=== PATIENT | female | born 1930 | race Caucasian/White ===

== ENCOUNTER 2017-06-10 15:42 | Inpatient (IN) ==
[2017-06-10] MEDS ORDERED: *HR* HYDROcodone/Acet 5/325 mg TABLET PO PRN (18:06)
[2017-06-10] MEDS ORDERED: Acetaminophen 325 MG TABLET PO PRN (18:06)
[2017-06-10] MEDS ORDERED: Naloxone 0.4 MG/ML INJ IVP PRN ×2 (18:06→19:59)
[2017-06-10] MEDS ORDERED: *HR* Heparin 5,000 UNIT/ML VIAL IVP PRN ×2 (18:07→20:42)
[2017-06-10] MEDS ORDERED: *HR* Heparin 5,000 UNIT/ML VIAL IVP ONE (20:42)
--- NOTE | 2017-06-10 20:52 | Internal Med History&Physical ---
<AlinDonnie Aurora - Last Filed: 06/10/17 21:10> Date of Encounter: 06/10/17 Time of Encounter: 20:46 Assessment and Plan (1) CHF (congestive heart failure) Current visit: No Status: Acute Laxis, oxygen supplement Qualifiers: Heart failure type: unspecified Heart failure chronicity: acute Qualified Code(s): I50.9 - Heart failure, unspecified (2) NSTEMI (non-ST elevated myocardial infarction) Current visit: No Status: Acute Heparin drip. cardiology consult, BNP, trend troponin Internal Medicine - H&P: HPI Chief complaint: Shortness of Breath Admitted From: Hospital to Hospital Transfer Plans for Post Hospital Care: Home History of present illness: Ms. Serra is a 86 year old female with Medical history that include hypertension, diabetes, CAD and CHF. last echo result showed an EF of 35%. She came is as a transfer with complain of shortness of breath and elevated troponin. Past Med Surg Social Fam HX - Past Medical History Medical history: diabetes, hypertension, other Psychiatric history: no psych history - Social History Smoking Status: Never smoker Smokeless Tobacco Status: No Alcohol use: none Drug use: none Internal Medicine - H&P: Meds Atenolol [Tenormin] 50 mg PO DAILY 05/12/15 [History] Ergocalciferol (VITAMIN D2) [Vitamin D2] 50,000 unit PO QWEEK 05/12/15 [History] Lisinopril [Zestril] 20 mg PO DAILY 05/12/15 [History] cloNIDine HCl [CloNIDine HCl] 0.1 mg PO BID 05/12/15 [History] metFORMIN [Glucophage] 500 mg PO BIDWM 05/12/15 [History] Furosemide [Lasix] 10 mg PO DAILY 06/10/17 [History] Potassium Bicarbonate/Cit AC [Potassium 25 Meq Tablet Eff] 1 PO DAILY 06/10/17 [ History] 3 Allergy/AdvReac Type Severity Reaction Status Date / Time No Known Allergies Allergy Verified 05/12/15 13:48 All Systems PM: A 10-system review of systems was performed and is negative for pertinent findings except as documented above in the HPI. - Constitutional Constitutional: as per HPI - Cardiovascular Cardiovascular ROS IM: dyspnea - Respiratory Respiratory: cough, dyspnea - Gastrointestinal Gastrointestinal: as per HPI - Constitutional Vitals: Temp Pulse Resp BP Pulse Ox 97.6 F 71 18 150/97 92 06/10/17 20:18 06/10/17 20:18 06/10/17 20:18 06/10/17 20:18 06/10/17 20:18 General appearance: Present: A&O X 3, pleasant - Eye Eye exam: Present: PERRL - ENT ENT exam: Present: TM's normal bilaterally - Neck Neck exam general surgery: Present: supple, trachea midline - Respiratory Respiratory exam: Present: CTAB - GI/Abdominal GI/Abdominal exam: Present: normal bowel sounds, no peritoneal signs - Extremities Exam Extremities exam: Present: pedal edema, warm - Neurological Exam Neurological exam: Present: alert, oriented X3 - Psychiatric Psychiatric exam: Present: normal affect, normal mood - Skin Skin exam: Present: dry, warm Internal Med - H&P Results - Labs Labs: Cardiac Enzymes 06/10/17 Range/Units 18:23 Troponin I 3.05 H* (< 0.04) ng/mL <Sita Agarwal - Last Filed: 06/10/17 23:06> Date of Encounter: 06/10/17 Internal Medicine - H&P: HPI History of present illness: Ms. Serra is a 86 year old female All Systems PM: A 10-system review of systems was performed and is negative for pertinent findings except as documented above in the HPI. - Constitutional Vitals: Temp Pulse Resp BP Pulse Ox 97.6 F 71 18 150/97 92 06/10/17 20:18 06/10/17 20:18 06/10/17 20:18 06/10/17 20:18 06/10/17 20:18 Internal Med - H&P Results - Labs Labs: Cardiac Enzymes 06/10/17 06/10/17 Range/Units 18:23 20:49 Troponin I 3.05 H* 2.82 H* (< 0.04) ng/mL - Attending Attestation I examined this patient and my medical decision-making was reviewed with the Resident Physician. I agree with the documented findings, disposition and treatment plan as described except to the extent set forth below.
[2017-06-10] MEDS ORDERED: cloNIDine HCl 0.1 MG TABLET PO SCH (21:00)
[2017-06-10] MEDS ORDERED: Nitroglycerin 25 MG/250 ML INFUS..BTL IVC SCH (21:15)
[2017-06-10] MEDS: Furosemide 40 MG/4 ML VIAL IVP SCH (22:13)
[2017-06-11] MEDS: Heparin 25,000 UNIT/500 ML D5W 25,000 UNIT/500 ML BAG IVC SCH ×2 (00:29→22:06)
[2017-06-11] MEDS: *HR* Heparin 5,000 UNIT/ML VIAL IVP PRN (00:34)
[2017-06-11] MEDS ORDERED: *HR* Metoprolol 5 MG/5 ML VIAL IVP ONE (01:32)
[2017-06-11 03:58] LABS: Hematocrit 40.6 % (35.3-44.9); Hemoglobin 13.9 g/dL (11.5-15.4); Mean Corpuscular HGB Conc 34.2 g/dL (31.6-35.5); Mean Corpuscular Hemoglobin 30.2 pg (28.0-33.3); Mean Corpuscular Volume 88.1 fL (83.0-100.0); Mean Platelet Volume 10.8 fL (9.4-12.4); Platelet Count 383 K/mcL (140-400); Red Blood Count 4.61 M/mcL (3.82-4.97); Red Cell Distribution Width 12.7 % (11.5-14.5)
[2017-06-11] MEDS ORDERED: Furosemide 40 MG/4 ML VIAL IVP ONE (04:16)
[2017-06-11 04:22] LABS: Chol/HDL Ratio 3.5 (0-4.9)
[2017-06-11 04:23] LABS: Calcium 10.2 mg/dL (8.6-10.3); Potassium 4.8 mEq/L (3.5-5.1)
--- NOTE | 2017-06-11 04:24 | Event Note ---
Date of Encounter: 06/11/17 Time of Encounter: 04:25 called to see patient still sob. patient still in respiratory distress not much urine output decresaed breathe sound bilat with prolonged exp phase will give lasix 80 mg now, place on bipap and obtain abg no history of copd stat bnp
[2017-06-11 04:26] LABS: ABG Base Excess 1 mEq/L (-2 to 3); ABG HCO3 25 mEq/L (21-27); ABG Oxygen Saturation 99 % (95-98); ABG PCO2 39 mmHg (35-45); ABG PH 7.42 pH Units (7.32-7.45); ABG PO2 113 mmHg (85-104); ABG TCO2 27 mEq/L (20-26)
[2017-06-11] MEDS ORDERED: *HR* Metformin 500 MG TABLET PO SCH (08:00)
[2017-06-11] MEDS: Furosemide 40 MG/4 ML VIAL IVP SCH ×2 (08:53→16:06)
[2017-06-11] MEDS: Lisinopril 20 MG TABLET PO SCH (08:53)
[2017-06-11] MEDS ORDERED: Furosemide 20 MG TABLET PO SCH (09:00)
[2017-06-11] MEDS ORDERED: Dextrose Gel 15 GM PO PRN ×2 (09:24)
[2017-06-11] MEDS ORDERED: D5% in Water 1,000 ML IVC PRN (09:24)
[2017-06-11] MEDS ORDERED: *HR* Dextrose 50 % in Water (Syg) 50 ML SYRINGE IVP PRN (09:24)
--- NOTE | 2017-06-11 10:01 | Internal Med Progress Note ---
Date of Encounter: 06/11/17 Time of Encounter: 09:35 - Subjective Interval history: Interval changes: 06/11/2017: Very confused this morning SOB with even minimal exertion She required BiPAP overnight NSTEMI: Trp- 2.82-->3.05-->2.56 ECG SR with freq. PVC Continue aspirin, BB, Heparin drip Cardiology consulted last night Keep NPO Stop Metformin Chronic systolic HF with exacerbation: CXR shows pulm vasc hema. BNP 2291 Given 80 mg of Lasix overnight Last Echo 06/02/2017: LVEF 35% with mild diastolic dysfunction Continue Lasix Monitor fluid balance On ANNELISE/ARB Upcoming initial OP visit with Dr. Jasso DM-2: Hold Metformin While NPO AccuChecks q6 hrs SSI Q6 hrs. Check A1c Dementia: - Constitutional Vitals: Temp Pulse Resp BP Pulse Ox 97.4 F L 101 18 162/78 97 06/11/17 00:27 06/11/17 07:22 06/11/17 07:22 06/11/17 07:22 06/11/17 07:22 General appearance: Present: mild distress, A&O X 3, pleasant, obese, answers questions appropriately - Head Head exam: Present: atraumatic, normocephalic - Eye Eye exam: Present: PERRL, conjuntiva pink, sclera anicteric Pupils: Present: PERRL - Neck Neck exam general surgery: Present: supple, trachea midline. Absent: lymphadenopathy - Respiratory Respiratory exam: Present: CTAB. Absent: accessory muscle use, rales, rhonchi, wheezes - Cardiovascular Cardiovascular exam: Present: RRR, +S1, +S2. Absent: diastolic murmur, gallop, rubs, systolic murmur - GI/Abdominal GI/Abdominal exam: Present: distended, normal bowel sounds, soft, no peritoneal signs. Absent: firm, guarding, tenderness - Extremities Exam Extremities exam: Present: pedal edema, warm. Absent: calf tenderness, cyanotic - Neurological Exam Neurological exam: Present: CN II-XII intact, oriented X3, no focal deficits. Absent: pronater drift, facial droop, speech deficit - Skin Skin exam: Present: dry, intact, warm Internal Medicine: Result - Labs CBC & Chem 7: 06/11/17 02:40 06/11/17 02:40 Labs: Short CBC 06/11/17 Range/Units 02:40 WBC 11.0 D (4.3-11.1) K/mcL Hgb 13.9 (11.5-15.4) g/dL Hct 40.6 (35.3-44.9) % Plt Count 383 (140-400) K/mcL BMP 06/11/17 02:40 Sodium 127 L Potassium 4.8 Chloride 90 L Carbon Dioxide 27 BUN 40 H Creatinine 1.32 H Glucose 253 H Calcium 10.2 Cardiac Enzymes 06/10/17 06/10/17 06/11/17 Range/Units 18:23 20:49 02:40 Troponin I 3.05 H* 2.82 H* 2.56 H* (< 0.04) ng/mL 06/11/17 Range/Units 08:27 Troponin I 2.08 H* (< 0.04) ng/mL - ABG Interpretation ABG results: ABG ABG pH 7.42 pH Units (7.32-7.45) 06/11/17 04:22 ABG pCO2 39 mmHg (35-45) 06/11/17 04:22 ABG pO2 113 mmHg (85-104) H 06/11/17 04:22 ABG O2 Saturation 99 % (95-98) H 06/11/17 04:22 Consult Discharge Plan - Plan Referrals: Mj Bernabe MD [Primary Care Provider] -
--- NOTE | 2017-06-11 10:44 | Cardiology Consult Note ---
Date of Encounter: 06/11/17 Time of Encounter: 10:45 Assessment and Plan (1) NSTEMI (non-ST elevated myocardial infarction) Current Visit: Yes Status: Acute ?Ischemic has frquent PVC but no ongoing chest discomfort. Could be demand ischemia from acute systolic CHF/CKD vs. JULIA Continue diuresis and heparin drip. (2) Acute systolic CHF (congestive heart failure) Current Visit: Yes Status: Acute Continue diuresis, increase NTG to address BP And improve preload reduction. Will plan on [facility] possibly tomorrow or Tuesday depending on clinical course. PAtient noted to have frequent PVC on tele but no ongoing chest discomfort and dyspnea improving. (3) HTN (hypertension) Current Visit: Yes Status: Acute uncontrolled, increase NTG Drip Qualifiers: Hypertension type: essential hypertension Qualified Code(s): I10 - Essential (primary) hypertension Discussion w patient/family: The assessment and plan as outlined above was discussed with the patient and/or family members who expressed understanding and agreement. All questions were answered. Thank you for involving us in the care of your patient. Please call with any questions. History of Present Illness History of present illness: Ms. Serra is a 86 year old female who lives in [facility] with Dr. Bernabe with no previous cardiac history and "healthy as a horse" until recently. She had an outpatient echo showing EF 35% (Global HK) and outpt cardiology fu. Yesterday had worsening of dyspnea on exertion and found in ED to have pulmonary edema/acute systolic CHF without chest/jaw/arm discomfort, started on NTG drip and lasix with improvement now on NC instead of BIPAP. She has chronic LE Edema. She denies syncope or palpitations. Past Med Surg Social Fam HX - Past Medical History Medical history: diabetes, hypertension, other Psychiatric history: no psych history - Social History Smoking Status: Never smoker Smokeless Tobacco Status: No Alcohol use: none Drug use: none Medications and Allergies Ergocalciferol (VITAMIN D2) [Vitamin D2] 50,000 unit PO QWEEK 05/12/15 [History] Lisinopril [Zestril] 20 mg PO DAILY 05/12/15 [History] cloNIDine HCl [CloNIDine HCl] 0.3 mg PO BID 05/12/15 [History] metFORMIN [Glucophage] 500 mg PO BIDWM 05/12/15 [History] Furosemide [Lasix] 40 mg PO BID 06/11/17 [History] Metoprolol Succinate [Toprol Xl] 50 mg PO BID 06/11/17 [History] Potassium Chloride [Klor-Con 10] 10 meq PO BID 06/11/17 [History] 3 Allergy/AdvReac Type Severity Reaction Status Date / Time No Known Allergies Allergy Verified 05/12/15 13:48 All Systems Review: The remainder of the systems were reviewed and are negative - Constitutional Constitutional: no chills, no fever(s) - EENT Eyes: no blurred vision, no loss of vision Nose, mouth and throat: no bleeding gums, no epistaxis - Cardiovascular Cardiovascular: dyspnea at rest, dyspnea on exertion - Respiratory Respiratory: no hemoptysis, no wheezing - Gastrointestinal Gastrointestinal: no hematemesis, no hematochezia - Genitourinary Genitourinary: no hematuria, no nocturia - Musculoskeletal Musculoskeletal: no arthralgias, no myalgias - Integumentary Integumentary: no erythema, no unusual bruising - Neurological Neurological: no numbness, no tingling - Psychiatric Psychiatric: no hallucinations, no panic attacks - Hematological/Lymphatic Hematologic/Lymphatic: no easy bleeding, no easy bruising Physical Examination Vital Signs, Last 4 Hours Pulse Resp BP Pulse Ox 06/11/17 07:22 101 18 162/78 97 General: Conversant HEENT: Atraumatic Neck: No JVD Cardiac: Other (irr s1 s2) Lungs: Other (bl crackles) Neuro: Alert and responsive, No focal deficits noted Abdomen: Soft, Non-Tender Skin: No rashes noted on visualized skin Musculoskeletal: No Chest Wall Tenderness Extremities: Other (edema present) Results 06/11/17 02:40 06/11/17 02:40 Lab Results 06/10/17 06/10/17 06/10/17 18:23 18:23 20:49 WBC Hgb Hct Plt Count APTT 34.5 Sodium Potassium Chloride Carbon Dioxide BUN Creatinine Glucose Calcium Magnesium Troponin I 3.05 H* 2.82 H* B-Natriuretic Peptide 06/10/17 06/11/17 06/11/17 22:25 02:40 02:40 WBC 11.0 D Hgb 13.9 Hct 40.6 Plt Count 383 APTT 48.7 H Sodium Potassium Chloride Carbon Dioxide BUN Creatinine Glucose Calcium Magnesium Troponin I 2.56 H* B-Natriuretic Peptide 06/11/17 06/11/17 06/11/17 02:40 02:40 02:40 WBC Hgb Hct Plt Count APTT Sodium 127 L Potassium 4.8 Chloride 90 L Carbon Dioxide 27 BUN 40 H Creatinine 1.32 H Glucose 253 H Calcium 10.2 Magnesium 2.2 Troponin I B-Natriuretic Peptide 2291 H 06/11/17 06/11/17 06:18 08:27 WBC Hgb Hct Plt Count APTT 92.8 H D Sodium Potassium Chloride Carbon Dioxide BUN Creatinine Glucose Calcium Magnesium Troponin I 2.08 H* B-Natriuretic Peptide - Imaging and Cardiology Chest Xray: report reviewed Echo: report reviewed, image reviewed - EKG Interpretation EKG results cardiology: sinus rhythm (with pvcs) Consult Discharge Plan - Plan Referrals: Mj Bernabe MD [Primary Care Provider] -
[2017-06-11] MEDS ORDERED: Nitroglycerin 25 MG/250 ML INFUS..BTL IVC SCH (10:50)
[2017-06-11] MEDS: Insulin LISPRO 300 UNITS/3 ML VIAL SQ SCH ×3 (11:12→22:03)
[2017-06-12] MEDS: Heparin 25,000 UNIT/500 ML D5W 25,000 UNIT/500 ML BAG IVC SCH (03:36)
[2017-06-12] MEDS: Ondansetron 4 MG/2 ML VIAL IVP PRN (04:28)
[2017-06-12 04:29] LABS: Basophils % 0.2 %; Hematocrit 37.3 % (35.3-44.9); Hemoglobin 12.5 g/dL (11.5-15.4); Immature Granulocytes % 0.5 % (0-4); Lymphocytes % 8.4 %; Mean Corpuscular HGB Conc 33.5 g/dL (31.6-35.5); Mean Corpuscular Volume 86.5 fL (83.0-100.0); Mean Platelet Volume 10.7 fL (9.4-12.4); Monocytes # 0.7 K/mcL (0.0-1.3); Monocytes % 5.9 %; Neutrophils # 9.9 K/mcL (1.6-8.9); Platelet Count 347 K/mcL (140-400); Red Blood Count 4.31 M/mcL (3.82-4.97); Red Cell Distribution Width 12.3 % (11.5-14.5)
[2017-06-12] MEDS: Insulin LISPRO 300 UNITS/3 ML VIAL SQ SCH ×4 (05:57→16:49)
[2017-06-12 06:15] LABS: Calcium 9.8 mg/dL (8.6-10.3); Chol/HDL Ratio 3.2 (0-4.9); Potassium 4.2 mEq/L (3.5-5.1)
[2017-06-12] MEDS: *HR* Heparin 5,000 UNIT/ML VIAL IVP PRN (06:48)
[2017-06-12] MEDS: Furosemide 40 MG/4 ML VIAL IVP SCH (08:23)
[2017-06-12] MEDS: Lisinopril 20 MG TABLET PO SCH (08:23)
[2017-06-12] MEDS: Aspirin 325 MG TABLET PO SCH (08:23)
--- NOTE | 2017-06-12 08:54 | Cardiology Progress Note ---
Date of Encounter: 06/12/17 Time of Encounter: 09:00 Assessment and Plan (1) NSTEMI (non-ST elevated myocardial infarction) Current Visit: Yes Status: Acute PVC less frequent and NSVT shorter. Continue heparin drip, will add imdur for preload reduction. Dyspnea has improved with mild worsening of renal function. (2) Acute systolic CHF (congestive heart failure) Current Visit: Yes Status: Acute PVC improving, patient stable. Start Imdur. Continue monitoring I&O, BMP, daily weight. will decrease lasix 2/2 JULIA? on CKD (3) HTN (hypertension) Current Visit: Yes Status: Acute uncontrolled, increase NTG Drip Qualifiers: Hypertension type: essential hypertension Qualified Code(s): I10 - Essential (primary) hypertension (4) CKD (chronic kidney disease) Current Visit: Yes Status: Acute Patient seen by Dr. Gonzalez in nephrology recently for ?mild CKD. Unknown baseline. Qualifiers: Chronic kidney disease stage: unspecified stage Qualified Code(s): N18.9 - Chronic kidney disease, unspecified Discussion w patient/family: The assessment and plan as outlined above was discussed with the patient and/or family members who expressed understanding and agreement. All questions were answered. Thank you for involving us in the care of your patient. Please call with any questions. Subjective Principal diagnosis: chf exacerbation Interval history: Patient denies chest/jaw/arm discomfort. She notes intermittent palpitations. Dyspnea is mildly improved. Objective Vital Signs, Last 4 Hours Temp Pulse Resp BP Pulse Ox 06/12/17 08:00 98 F 78 18 133/88 96 06/12/17 05:48 77 18 135/88 96 General: Conversant HEENT: Atraumatic Neck: No JVD Cardiac: Other (irr s1 s2) Lungs: Other (bilateral crackles) Neuro: Alert and responsive Abdomen: Soft Skin: No rashes noted on visualized skin Musculoskeletal: No Chest Wall Tenderness Extremities: No Edema Results 06/12/17 03:14 06/12/17 03:14 Lab Results 06/11/17 06/11/17 06/11/17 08:27 12:25 19:40 WBC Hgb Hct Plt Count APTT 103.1 H 66.9 H Sodium Potassium Chloride Carbon Dioxide BUN Creatinine Glucose Calcium Troponin I 2.08 H* 03/25/18 03/25/18 03/25/18 03:14 03:14 03:14 WBC 11.6 H Hgb 12.5 Hct 37.3 Plt Count 347 APTT 46.6 H Sodium 126 L Potassium 4.2 Chloride 88 L Carbon Dioxide 26 BUN 42 H Creatinine 1.42 H Glucose 187 H Calcium 9.8 Troponin I - Imaging and Cardiology Echo: image reviewed - VTE Documentation of Mechanical Device: Intermittent pneumatic compression device Consult Discharge Plan - Plan Referrals: Mj Bernabe MD [Primary Care Provider] -
--- NOTE | 2017-06-12 22:14 | Internal Med Progress Note ---
Date of Encounter: 06/12/17 Time of Encounter: 18:20 - Subjective Interval history: Interval changes: 06/11/2017: Very confused this morning SOB with even minimal exertion She required BiPAP overnight 06/12/2017: lab scientist tomorrow Imdur added Lasix dose decreased due to worsenng renal failure Breathing comfortably NSTEMI: Trp- 2.82-->3.05-->2.56 ECG SR with freq. PVC Continue aspirin, BB, Heparin drip Keep NPO Metformin held lab scientist in am Chronic systolic HF with exacerbation: CXR shows pulm vasc hema. BNP 2291 Given 80 mg of Lasix overnight Last Echo 06/02/2017: LVEF 35% with mild diastolic dysfunction Continue Lasix Monitor fluid balance On ANNELISE/ARB Imdur added by cardiology DM-2: Hold Metformin While NPO AccuChecks q6 hrs SSI Q6 hrs. Check A1c Dementia: - Constitutional Vitals: Temp Pulse Resp BP Pulse Ox 98.0 F 79 16 125/88 97 06/12/17 19:52 06/12/17 19:52 06/12/17 19:52 06/12/17 19:52 06/12/17 19:52 General appearance: Present: mild distress, A&O X 3, pleasant, obese, answers questions appropriately - Head Head exam: Present: atraumatic, normocephalic - Eye Eye exam: Present: PERRL, conjuntiva pink, sclera anicteric Pupils: Present: PERRL - Neck Neck exam general surgery: Present: supple, trachea midline. Absent: lymphadenopathy - Respiratory Respiratory exam: Present: CTAB. Absent: accessory muscle use, rales, rhonchi, wheezes - Cardiovascular Cardiovascular exam: Present: RRR, +S1, +S2. Absent: diastolic murmur, gallop, rubs, systolic murmur - GI/Abdominal GI/Abdominal exam: Present: normal bowel sounds, soft, no peritoneal signs. Absent: distended, tenderness - Extremities Exam Extremities exam: Present: warm. Absent: calf tenderness, cyanotic, pedal edema - Neurological Exam Neurological exam: Present: CN II-XII intact, oriented X3, no focal deficits. Absent: pronater drift, facial droop, speech deficit - Skin Skin exam: Present: dry, intact Internal Medicine: Result - Labs CBC & Chem 7: 06/12/17 03:14 06/12/17 03:14 Labs: Short CBC 06/12/17 Range/Units 03:14 WBC 11.6 H (4.3-11.1) K/mcL Hgb 12.5 (11.5-15.4) g/dL Hct 37.3 (35.3-44.9) % Plt Count 347 (140-400) K/mcL Neutrophils # 9.9 H (1.6-8.9) K/mcL BMP 06/12/17 03:14 Sodium 126 L Potassium 4.2 Chloride 88 L Carbon Dioxide 26 BUN 42 H Creatinine 1.42 H Glucose 187 H Calcium 9.8 - ABG Interpretation ABG results: ABG ABG pH 7.42 pH Units (7.32-7.45) 06/11/17 04:22 ABG pCO2 39 mmHg (35-45) 06/11/17 04:22 ABG pO2 113 mmHg (85-104) H 06/11/17 04:22 ABG O2 Saturation 99 % (95-98) H 06/11/17 04:22 - VTE Documentation of Mechanical Device: Intermittent pneumatic compression device Consult Discharge Plan - Plan Referrals: Mj Bernabe MD [Primary Care Provider] -
[2017-06-13 03:44] LABS: Basophils # 0.1 K/mcL (0.0-0.2); Basophils % 0.4 %; Eosinophils # 0.1 K/mcL (0.0-0.6); Eosinophils % 0.5 %; Hematocrit 37.1 % (35.3-44.9); Hemoglobin 12.7 g/dL (11.5-15.4); Immature Granulocytes % 0.6 % (0-4); Lymphocytes # 1.3 K/mcL (0.6-4.6); Lymphocytes % 9.8 %; Mean Corpuscular HGB Conc 34.2 g/dL (31.6-35.5); Mean Corpuscular Hemoglobin 29.3 pg (28.0-33.3); Mean Corpuscular Volume 85.7 fL (83.0-100.0); Mean Platelet Volume 10.4 fL (9.4-12.4); Monocytes # 0.9 K/mcL (0.0-1.3); Platelet Count 321 K/mcL (140-400); Red Blood Count 4.33 M/mcL (3.82-4.97); Red Cell Distribution Width 12.6 % (11.5-14.5); Segmented Neutrophils % 81.7 %
[2017-06-13 03:59] LABS: Calcium 9.4 mg/dL (8.6-10.3); Potassium 4.4 mEq/L (3.5-5.1)
[2017-06-13] MEDS: Heparin 25,000 UNIT/500 ML D5W 25,000 UNIT/500 ML BAG IVC SCH (04:13)
[2017-06-13] MEDS: Insulin LISPRO 300 UNITS/3 ML VIAL SQ SCH ×4 (08:53→21:58)
[2017-06-13] MEDS: Isosorbide MONOnitrate (24 HR) 30 MG TAB.ER.24H PO SCH (08:54)
[2017-06-13] MEDS: Lisinopril 20 MG TABLET PO SCH (08:54)
[2017-06-13] MEDS: Aspirin 325 MG TABLET PO SCH (08:55)
[2017-06-13] MEDS ORDERED: Furosemide 40 MG/4 ML VIAL IVP SCH (09:00)
[2017-06-13 10:13] LABS: Estimated Average Glucose 154 mg/dl
--- NOTE | 2017-06-13 10:39 | Cardiology Progress Note ---
Date of Encounter: 06/13/17 Time of Encounter: 10:36 Assessment and Plan (1) NSTEMI (non-ST elevated myocardial infarction) Current Visit: Yes Status: Acute Troponins 3.05, 2.82, 2.56, 2.08. Chest pain free. TTE 06/02/17 found to have reduced EF of 35%. On heparin gtt, ASA, Statin, BB. Initially was planned to have LHC today, but renal function has worsened. Creatinine was 1.24 on admission, 1.42 yesterday and 1.63 today. Plan to hold Lasix, recheck BMP tomorrow AM. If renal function is improved/ stable, LHC tomorrow. R/B/A discussed. Pt and family in agreement. (2) Acute systolic CHF (congestive heart failure) Current Visit: Yes Status: Acute EF found to be 35% on outpt TTE 06/02/17. Was given 80mg IV Lasix on admission, then 40mg BID. Was decreased to IV Lasix 40mg daily due to worsening renal function. Renal function continues to mildly worsen, creatinine 1.63 today. Pt appears near euvolemic on exam. Will hold Lasix. Re-evaluate renal function in AM for potential LHC. Recommend 2L fluid restriction, daily weights, Na restriction, Strict I/Os. (3) CKD (chronic kidney disease) Current Visit: Yes Status: Acute Patient seen by Dr. Gonzalez in nephrology recently for mild CKD, stage III. Mild worsening of creatinine on IV Lasix. Will hold. Qualifiers: Chronic kidney disease stage: unspecified stage Qualified Code(s): N18.9 - Chronic kidney disease, unspecified Discussion w patient/family: The assessment and plan as outlined above was discussed with the patient and/or family members who expressed understanding and agreement. All questions were answered. Thank you for involving us in the care of your patient. Please call with any questions. I will discuss all the above with Dr. Vazquez and make changes as necessary. Subjective Principal diagnosis: chf exacerbation Interval history: Pt denies chest pain this AM. Dyspnea has improved. Family at bedside, reporting pt seems more tired and less talkative this AM. Pt alert and oriented x [address] Was unsure of year. Creatinine has worsened today-- went from 1.42 yesterday to 1.63 today. Objective Vital Signs, Last 4 Hours Pulse Ox 06/13/17 09:09 95 Vital Signs Temp Pulse Resp BP Pulse Ox 06/13/17 09:09 95 06/13/17 06:25 97.7 F 94 15 149/102 95 06/13/17 05:00 97.7 F 80 16 135/90 95 06/12/17 19:52 98.0 F 79 16 125/88 97 06/12/17 15:58 98 F 72 16 112/78 98 06/12/17 11:59 97.6 F 65 16 117/68 97 Intake and Output 06/12/17 06/13/17 06/13/17 23:59 07:59 15:59 Intake Total 480 / 480 50 / 50 0 / 0 Output Total 0 / 0 300 / 300 Balance 480 / 480 -250 / -250 0 / 0 Intake: IV Fluids 50 / 50 Heparin 25,000 UNIT/500 ML D5W 50 / 50 25,000 unit In 500 ml @ 12 UNIT /KG/HR 16.056 mls/hr IVC .Q24H [facility] Rx#:[id number] Oral 480 / 480 0 / 0 0 / 0 Output: Urine 0 / 0 Catheter 300 / 300 Other: Meal Dinner Breakfast Percent of Meal Consumed 75% Weight 64.5 kg Blood Glucose* 217 204 Patient Weight 06/13/17 23:59 Weight 64.5 kg General: Conversant, No Apparent Distress HEENT: Atraumatic, Normocephaly, Mucus Membranes Moist Neck: No JVD, Normal carotid pulses Cardiac: Reg Rate and Rhythm, Normal S1 and S2, No Murmur Lungs: Normal Breath Sounds, No Wheeze, Rales, Rhonchi Neuro: Alert and responsive, Other (confused at times) Abdomen: Soft, Non-Tender Skin: No rashes noted on visualized skin Musculoskeletal: No Chest Wall Tenderness Extremities: No Clubbing, No Cyanosis, No Edema, Normal Pulses Results 06/13/17 03:11 06/13/17 03:11 Lab Results 06/12/17 06/12/17 06/13/17 13:10 19:33 03:11 WBC 13.4 H Hgb 12.7 Hct 37.1 Plt Count 321 APTT 87.2 H D 68.8 H Sodium Potassium Chloride Carbon Dioxide BUN Creatinine Glucose Calcium 06/13/17 03:11 WBC Hgb Hct Plt Count APTT Sodium 123 L Potassium 4.4 Chloride 87 L Carbon Dioxide 27 BUN 50 H Creatinine 1.63 H Glucose 181 H Calcium 9.4 Short CBC 06/13/17 Range/Units 03:11 WBC 13.4 H (4.3-11.1) K/mcL Hgb 12.7 (11.5-15.4) g/dL Hct 37.1 (35.3-44.9) % Plt Count 321 (140-400) K/mcL Neutrophils # 11.0 H (1.6-8.9) K/mcL BMP 06/13/17 Range/Units 03:11 Sodium 123 L (136-145) mEq/L Potassium 4.4 (3.5-5.1) mEq/L Chloride 87 L (98-107) mEq/L Carbon Dioxide 27 (23-29) mEq/L BUN 50 H (8-23) mg/dL Creatinine 1.63 H (0.60-1.20) mg/dL Glucose 181 H (70-105) mg/dL Calcium 9.4 (8.6-10.3) mg/dL Active Medications Acetaminophen (Tylenol) 650 mg PO Q6HR PRN PRN Reason: Mild Pain/Fever Stop: 12/10/17 18:07 Hydrocodone Bitart/Acetaminophen ([place] 5-325 Mg) 1 tab PO Q6HR PRN PRN Reason: Moderate Pain Stop: 12/10/17 18:07 Aspirin (Aspirin) 325 mg PO DAILY [facility] Stop: 12/12/17 09:01 Last Admin: 06/13/17 08:55 Dose: 325 mg Bisacodyl (Dulcolax) 5 mg PO DAILY PRN PRN Reason: Constipation Stop: 12/11/17 14:20 Last Admin: 06/11/17 14:25 Dose: 5 mg Carvedilol (Coreg) 6.25 mg PO BIDWM [facility] PRN Reason: Protocol Stop: 12/11/17 17:01 Last Admin: 06/13/17 08:54 Dose: 6.25 mg Dextrose/Water (Dextrose 50% (Syg)) 25 ml IVP AD PRN PRN Reason: Hypoglycemia Stop: 12/11/17 09:25 Furosemide (Lasix) 40 mg IVP DAILY [facility] Stop: 12/13/17 09:01 Last Admin: 06/13/17 10:15 Dose: Not Given Glucagon (Glucagen) 1 mg IM ONCE PRN PRN Reason: Hypoglycemia Stop: 12/11/17 09:25 Glucose (Gluctose) 15 gm PO ONCE PRN PRN Reason: Hypoglycemia Stop: 12/11/17 09:25 Glucose (Gluctose) 30 gm PO ONCE PRN PRN Reason: Hypoglycemia Stop: 12/11/17 09:25 Heparin Sodium (Porcine) (Heparin) 4,000 unit 60 unit/kg (4000 unit) IVP Q6HR PRN PRN Reason: SEE COMMENTS Stop: 12/10/17 20:43 Heparin Sodium (Porcine) (Heparin) 2,000 unit 30 unit/kg (2000 unit) IVP Q6H PRN PRN Reason: SEE COMMENTS Stop: 12/10/17 20:43 Last Admin: 06/12/17 06:48 Dose: 2,000 unit Heparin Sodium/Dextrose (Heparin 25,000 Unit/500 Ml D5w) 25,000 unit in 500 mls @ 16.056 mls/hr IVC .Q24H [facility]; 12 UNIT/KG/HR PRN Reason: Protocol Stop: 12/10/17 18:16 Last Admin: 06/13/17 04:13 Dose: 15.9 unit/kg/hr, 21.274 mls/hr Dextrose (Dextrose 5%) 1,000 mls @ 100 mls/hr IVC .Q10H PRN PRN Reason: HYPOGLYCEMIA Stop: 12/11/17 09:25 Insulin Human Lispro (Humalog) 0 units SQ TIDAC [facility] PRN Reason: Protocol Stop: 12/11/17 11:31 Last Admin: 06/13/17 08:53 Dose: Not Given Insulin Human Lispro (Humalog) 0 units SQ [facility] PRN Reason: Protocol Stop: 12/11/17 21:01 Last Admin: 06/12/17 05:57 Dose: Not Given Isosorbide Mononitrate (Imdur) 30 mg PO DAILY [facility] Stop: 12/13/17 09:01 Last Admin: 06/13/17 08:54 Dose: 30 mg Lisinopril (Zestril) 20 mg PO DAILY [facility] PRN Reason: Protocol Stop: 12/11/17 09:01 Last Admin: 06/13/17 08:54 Dose: 20 mg Naloxone HCl (Narcan) 0.4 mg IVP Q2MIN PRN PRN Reason: SEE COMMENTS Stop: 12/10/17 20:00 Ondansetron HCl (Zofran) 4 mg IVP Q6HR PRN; Protocol PRN Reason: Nausea Stop: 12/12/17 04:12 Last Admin: 06/12/17 04:28 Dose: 4 mg Senna/Docusate Sodium (Senna Plus) 1 each PO BID [facility] PRN Reason: Protocol Stop: 12/13/17 21:01 - Imaging and Cardiology Echo: report reviewed - EKG Interpretation EKG results cardiology: other (12 hr tele AVG HR 80, SR with frequent ectopy) - VTE Documentation of Mechanical Device: Intermittent pneumatic compression device Consult Discharge Plan - Plan Referrals: Mj Bernabe MD [Primary Care Provider] -
[2017-06-13] MEDS: Sennosides/Docusate Sodium TABLET PO SCH ×2 (12:28→20:30)
[2017-06-13] MEDS ORDERED: Sennosides/Docusate Sodium TABLET PO SCH (21:00)
--- NOTE | 2017-06-14 00:45 | Internal Med Progress Note ---
Date of Encounter: 06/13/17 Time of Encounter: 16:45 - Subjective Interval history: Interval changes: 06/11/2017: Very confused this morning SOB with even minimal exertion She required BiPAP overnight 06/12/2017: vp lab tomorrow Imdur added Lasix dose decreased due to worsenng renal failure Breathing comfortably 06/13/17 No new changes No cp No sob at rest vp lab in am NSTEMI: Trp- 2.82-->3.05-->2.56 ECG SR with freq. PVC Continue aspirin, BB, Heparin drip Keep NPO Metformin held vp lab in am Chronic systolic HF with exacerbation: CXR shows pulm vasc hema. BNP 2291 Given 80 mg of Lasix overnight Last Echo 06/02/2017: LVEF 35% with mild diastolic dysfunction Continue Lasix Monitor fluid balance On ANNELISE/ARB Imdur added by cardiology DM-2: Hold Metformin While NPO AccuChecks q6 hrs SSI Q6 hrs. Check A1c Dementia: - Constitutional Vitals: Temp Pulse Resp BP Pulse Ox 98.9 F 85 16 120/86 98 06/13/17 19:05 06/13/17 19:05 06/13/17 19:05 06/13/17 19:05 06/13/17 19:05 General appearance: Present: mild distress, A&O X 3, pleasant, obese, answers questions appropriately - Head Head exam: Present: atraumatic, normocephalic - Eye Eye exam: Present: EOMI, PERRL, conjuntiva pink, sclera anicteric Pupils: Present: PERRL - Neck Neck exam general surgery: Present: supple, trachea midline. Absent: lymphadenopathy, nuchal rigidity, thyromegaly - Respiratory Respiratory exam: Present: CTAB. Absent: accessory muscle use, rales, rhonchi, wheezes - Cardiovascular Cardiovascular exam: Present: RRR, +S1, +S2. Absent: diastolic murmur, gallop, rubs, systolic murmur - GI/Abdominal GI/Abdominal exam: Present: normal bowel sounds, soft, no peritoneal signs. Absent: distended, firm, guarding, rebound, rigid, tenderness - Extremities Exam Extremities exam: Present: warm. Absent: calf tenderness, cyanotic, pedal edema - Neurological Exam Neurological exam: Present: CN II-XII intact, oriented X3, no focal deficits. Absent: pronater drift, facial droop, speech deficit - Skin Skin exam: Present: dry, intact Internal Medicine: Result - Labs CBC & Chem 7: 06/13/17 03:11 06/13/17 03:11 Labs: Short CBC 06/13/17 Range/Units 03:11 WBC 13.4 H (4.3-11.1) K/mcL Hgb 12.7 (11.5-15.4) g/dL Hct 37.1 (35.3-44.9) % Plt Count 321 (140-400) K/mcL Neutrophils # 11.0 H (1.6-8.9) K/mcL BMP 06/13/17 03:11 Sodium 123 L Potassium 4.4 Chloride 87 L Carbon Dioxide 27 BUN 50 H Creatinine 1.63 H Glucose 181 H Calcium 9.4 - ABG Interpretation ABG results: ABG ABG pH 7.42 pH Units (7.32-7.45) 06/11/17 04:22 ABG pCO2 39 mmHg (35-45) 06/11/17 04:22 ABG pO2 113 mmHg (85-104) H 06/11/17 04:22 ABG O2 Saturation 99 % (95-98) H 06/11/17 04:22 - VTE Documentation of Mechanical Device: Intermittent pneumatic compression device Consult Discharge Plan - Plan Referrals: jM Bernabe MD [Primary Care Provider] -
[2017-06-14] MEDS: Heparin 25,000 UNIT/500 ML D5W 25,000 UNIT/500 ML BAG IVC SCH (04:40)
[2017-06-14 05:49] LABS: Basophils % 0.1 %; Eosinophils # 0.1 K/mcL (0.0-0.6); Eosinophils % 1.1 %; Hematocrit 35.6 % (35.3-44.9); Hemoglobin 12.4 g/dL (11.5-15.4); Immature Granulocytes % 0.5 % (0-4); Lymphocytes # 1.4 K/mcL (0.6-4.6); Lymphocytes % 14.6 %; Mean Corpuscular HGB Conc 34.8 g/dL (31.6-35.5); Mean Corpuscular Hemoglobin 29.1 pg (28.0-33.3); Mean Corpuscular Volume 83.6 fL (83.0-100.0); Mean Platelet Volume 10.6 fL (9.4-12.4); Monocytes # 0.8 K/mcL (0.0-1.3); Neutrophils # 7.4 K/mcL (1.6-8.9); Platelet Count 317 K/mcL (140-400); Red Blood Count 4.26 M/mcL (3.82-4.97); Red Cell Distribution Width 12.7 % (11.5-14.5); Segmented Neutrophils % 75.7 %
[2017-06-14] MEDS: Insulin LISPRO 300 UNITS/3 ML VIAL SQ SCH ×4 (08:12→21:06)
[2017-06-14] MEDS: Isosorbide MONOnitrate (24 HR) 30 MG TAB.ER.24H PO SCH (08:21)
[2017-06-14] MEDS: Sennosides/Docusate Sodium TABLET PO SCH ×2 (08:21→21:04)
[2017-06-14] MEDS: Aspirin 81 MG TAB.CHEW PO SCH (08:21)
--- NOTE | 2017-06-14 08:24 | Internal Med Progress Note ---
<Luiz Mirza - Last Filed: 06/14/17 10:09> Date of Encounter: 06/14/17 Time of Encounter: 08:15 - Assessment and plan (1) Acute on chronic systolic HF (heart failure) Current Visit: Yes Status: Acute Assessment and plan: Chest x-ray shows pulmonary vascular congestion.BNP of 2291. Last Echo 06/02/2017 : LVEF 35% with mild diastolic dysfunction. 24 output shows -300 mL. Diuretics currently on hold due to increase in creatinine yesterday. Current creatinine has fallen from 1.63 down to 1.14 today. Patient hyponatremic at 118. - Will hold off on diuretics for now pending further evaluation from cardiology. - Fluid restrictions. - 1 GM salt tablet PO BID 2 doses. - No LHC today. (2) NSTEMI (non-ST elevated myocardial infarction) Current Visit: Yes Status: Acute Assessment and plan: Trp- 2.82-->3.05-->2.56. ECG SR with freq. PVC. Denies any chest pain or SOB today. - Continue aspirin, BB, Heparin drip - Keep NPO - Metformin held - no LHC today. (3) CKD (chronic kidney disease) Current Visit: Yes Status: Acute Assessment and plan: Patient seen by Dr. Gonzalez in nephrology recently for mild CKD, stage III. Lasix held yesterday due to worsening creatinine. Today creatinine has dropped from 1.63 down to 1.14. - We will resume Lasix pending evaluation cardiology. Qualifiers: Chronic kidney disease stage: unspecified stage Qualified Code(s): N18.9 - Chronic kidney disease, unspecified (4) Hyponatremia Current Visit: Yes Status: Acute Assessment and plan: Sodium at 118. - Salt tablets BID. - q 4H Na+ checks. - 60 cc/hr NS after results of urine NA and osm. (5) DVT prophylaxis Current Visit: Yes Status: Acute Assessment and plan: On heparin drip. - Subjective Interval history: When seen today patient denies any chest pain, shortness of breath, fever, chills, nausea, vomiting. She says she has not had a bowel movement for the past several days. Denies any dysuria. - Constitutional Vitals: Temp Pulse Resp BP Pulse Ox 98.8 F 82 15 158/91 94 06/14/17 06:46 06/14/17 06:46 06/14/17 06:46 06/14/17 06:46 06/14/17 06:46 General appearance: Present: mild distress, A&O X 3, pleasant, obese, answers questions appropriately - Respiratory Respiratory exam: Present: CTAB. Absent: accessory muscle use, rales, rhonchi, wheezes - Cardiovascular Cardiovascular exam: Present: RRR, +S1, +S2. Absent: diastolic murmur, gallop, rubs, systolic murmur - GI/Abdominal GI/Abdominal exam: Present: normal bowel sounds, soft, no peritoneal signs. Absent: distended, guarding, rebound, tenderness - Extremities Exam Extremities exam: Present: warm, radial pulses palpable and symmetrical. Absent : calf tenderness, cyanotic, pedal edema Internal Medicine: Result - Labs CBC & Chem 7: 06/14/17 05:10 06/14/17 07:36 Labs: Short CBC 06/14/17 Range/Units 05:10 WBC 9.8 (4.3-11.1) K/mcL Hgb 12.4 (11.5-15.4) g/dL Hct 35.6 (35.3-44.9) % Plt Count 317 (140-400) K/mcL Neutrophils # 7.4 (1.6-8.9) K/mcL - ABG Interpretation ABG results: ABG ABG pH 7.42 pH Units (7.32-7.45) 06/11/17 04:22 ABG pCO2 39 mmHg (35-45) 06/11/17 04:22 ABG pO2 113 mmHg (85-104) H 06/11/17 04:22 ABG O2 Saturation 99 % (95-98) H 06/11/17 04:22 - VTE Documentation of Mechanical Device: Intermittent pneumatic compression device Consult Discharge Plan - Plan Referrals: Mj Bernabe MD [Primary Care Provider] - <Michael Lin H - Last Filed: 06/14/17 10:45> Date of Encounter: 06/14/17 - Constitutional Vitals: Temp Pulse Resp BP Pulse Ox 98.8 F 82 15 158/91 94 06/14/17 06:46 06/14/17 06:46 06/14/17 06:46 06/14/17 06:46 06/14/17 06:46 Internal Medicine: Result - Labs CBC & Chem 7: 06/14/17 05:10 06/14/17 07:36 Labs: Short CBC 06/14/17 Range/Units 05:10 WBC 9.8 (4.3-11.1) K/mcL Hgb 12.4 (11.5-15.4) g/dL Hct 35.6 (35.3-44.9) % Plt Count 317 (140-400) K/mcL Neutrophils # 7.4 (1.6-8.9) K/mcL BMP 06/14/17 07:36 Sodium 118 L* Potassium 4.1 Chloride 85 L Carbon Dioxide 25 BUN 42 H Creatinine 1.14 Glucose 171 H Calcium 8.9 - ABG Interpretation ABG results: ABG ABG pH 7.42 pH Units (7.32-7.45) 06/11/17 04:22 ABG pCO2 39 mmHg (35-45) 06/11/17 04:22 ABG pO2 113 mmHg (85-104) H 06/11/17 04:22 ABG O2 Saturation 99 % (95-98) H 06/11/17 04:22 - Attending Attestation Severe hyponatremia likely secondary to poor oral intake, the patient has not been able to eat since yesterday Order sodium in urine and osmolality, continue salt tablets, monitor sodium every 4 hours We will start normal saline after obtaining urine sample Non-STEMI: Cardiac catheterization when possible per cardiology, canceled today Continue heparin drip I examined this patient and my medical decision-making was reviewed with the Resident Physician. I agree with the documented findings, disposition and treatment plan as described except to the extent set forth below.
[2017-06-14 08:25] LABS: Calcium 8.9 mg/dL (8.6-10.3); Potassium 4.1 mEq/L (3.5-5.1)
[2017-06-14] MEDS: Ondansetron 4 MG/2 ML VIAL IVP PRN (09:23)
[2017-06-14] MEDS ORDERED: Ondansetron 4 MG/2 ML VIAL IVP PRN (10:10)
[2017-06-14] MEDS ORDERED: 0.9 % Sodium Chloride 1,000 ML IVC SCH (10:15)
--- NOTE | 2017-06-14 10:17 | Cardiology Progress Note ---
Date of Encounter: 06/14/17 Time of Encounter: 10:14 Assessment and Plan (1) NSTEMI (non-ST elevated myocardial infarction) Current Visit: Yes Status: Acute Troponins 3.05, 2.82, 2.56, 2.08. Chest pain free. TTE 06/02/17 found to have reduced EF of 35%. On heparin gtt, ASA, Statin, BB. Initially was planned to have LHC today, but has low Na--118. Discussed with interventionalist and general cardiology. Given risks associated with hyponatremia, recommend holding off on LHC until Na is corrected. Hospitalist ordered Na tablets. Recommend nephrology evaluation as well. Creatinine was 1.24 on admission, 1.63 yesterday. Improved creatinine of 1.14 today after holding IV Lasix and PO Lisinopril. Continue to follow. [facility] once renal function and electrolytes allow. Pt and family aware. (2) Acute systolic CHF (congestive heart failure) Current Visit: Yes Status: Acute EF found to be 35% on outpt TTE 06/02/17. Was given 80mg IV Lasix on admission, then 40mg BID. Was decreased to IV Lasix 40mg daily, then stopped yesterday due to worsening renal function. Creatinine has improved--1.14 today after holding Lasix and Lisinopril. Pt appears near euvolemic on exam. Recommend 2L fluid restriction, daily weights, Na restriction, Strict I/Os. (3) CKD (chronic kidney disease) Current Visit: Yes Status: Acute Patient seen by Dr. Gonzalez in nephrology recently for mild CKD, stage III. Creatinine improved today after holding nephrotoxic agents. Qualifiers: Chronic kidney disease stage: unspecified stage Qualified Code(s): N18.9 - Chronic kidney disease, unspecified (4) Hyponatremia Current Visit: Yes Status: Acute Na has been 120s since admission, decreased to 118 today. Pt is alert and oriented. Does complain of nausea. Hospitalist ordered Na tablets. Recommend nephrology evaluation as well. Discussion w patient/family: The assessment and plan as outlined above was discussed with the patient and/or family members who expressed understanding and agreement. All questions were answered. Thank you for involving us in the care of your patient. Please call with any questions. I will discuss all the above with Dr. Vazquez and make changes as necessary. Subjective Principal diagnosis: chf exacerbation Interval history: Pt denies chest pain this AM. Dyspnea has improved. Reports nausea this AM. Na resulted as critically low 118. Creatinine improved--1.14 today. Objective Vital Signs, Last 4 Hours Temp Pulse Resp BP Pulse Ox 06/14/17 06:46 98.8 F 82 15 158/91 94 Vital Signs Temp Pulse Resp BP Pulse Ox 06/14/17 06:46 98.8 F 82 15 158/91 94 06/14/17 05:40 98.8 F 84 19 108/63 96 06/13/17 19:05 98.9 F 85 16 120/86 98 06/13/17 15:39 98.0 F 75 19 127/89 98 06/13/17 11:03 97.4 F L 74 19 126/106 96 Intake and Output 06/13/17 06/14/17 06/14/17 23:59 07:59 15:59 Intake Total 240 / 240 500 / 500 0 / 0 Output Total 800 / 800 Balance 240 / 240 -300 / -300 0 / 0 Intake: IV Fluids 500 / 500 Heparin 25,000 UNIT/500 ML D5W 500 / 500 25,000 unit In 500 ml @ 12 UNIT /KG/HR 16.056 mls/hr IVC .Q24H [facility] Rx#:[id number] Oral 240 / 240 0 / 0 0 / 0 Output: Catheter 800 / 800 Other: Meal Dinner Breakfast Percent of Meal Consumed 25% 0% Blood Glucose* 194 174 General: Conversant, No Apparent Distress HEENT: Atraumatic, Normocephaly, Mucus Membranes Moist Neck: No JVD Cardiac: Reg Rate and Rhythm, Normal S1 and S2, No Murmur Lungs: Normal Breath Sounds, No Wheeze, Rales, Rhonchi Neuro: Alert and responsive, No focal deficits noted Abdomen: Soft, Non-Tender Skin: No rashes noted on visualized skin Musculoskeletal: No Chest Wall Tenderness Extremities: No Clubbing, No Cyanosis, No Edema, Normal Pulses Results 06/14/17 05:10 06/14/17 07:36 Lab Results 06/13/17 06/14/17 06/14/17 18:48 05:10 07:36 WBC 9.8 Hgb 12.4 Hct 35.6 Plt Count 317 APTT 62.7 H Sodium 118 L* Potassium 4.1 Chloride 85 L Carbon Dioxide 25 BUN 42 H Creatinine 1.14 Glucose 171 H Calcium 8.9 Short CBC 06/14/17 Range/Units 05:10 WBC 9.8 (4.3-11.1) K/mcL Hgb 12.4 (11.5-15.4) g/dL Hct 35.6 (35.3-44.9) % Plt Count 317 (140-400) K/mcL Neutrophils # 7.4 (1.6-8.9) K/mcL BMP 06/14/17 Range/Units 07:36 Sodium 118 L* (136-145) mEq/L Potassium 4.1 (3.5-5.1) mEq/L Chloride 85 L (98-107) mEq/L Carbon Dioxide 25 (23-29) mEq/L BUN 42 H (8-23) mg/dL Creatinine 1.14 (0.60-1.20) mg/dL Glucose 171 H (70-105) mg/dL Calcium 8.9 (8.6-10.3) mg/dL Active Medications Acetaminophen (Tylenol) 650 mg PO Q6HR PRN PRN Reason: Mild Pain/Fever Stop: 12/10/17 18:07 Hydrocodone Bitart/Acetaminophen ([place] 5-325 Mg) 1 tab PO Q6HR PRN PRN Reason: Moderate Pain Stop: 12/10/17 18:07 Aspirin (Aspirin) 81 mg PO DAILY [facility] Stop: 12/14/17 09:01 Last Admin: 06/14/17 08:21 Dose: 81 mg Atorvastatin Calcium (Lipitor) 40 mg PO HS [facility] Stop: 12/13/17 21:01 Last Admin: 06/13/17 20:30 Dose: 40 mg Bisacodyl (Dulcolax) 5 mg PO DAILY PRN PRN Reason: Constipation Stop: 12/11/17 14:20 Last Admin: 06/11/17 14:25 Dose: 5 mg Carvedilol (Coreg) 6.25 mg PO BIDWM [facility] PRN Reason: Protocol Stop: 12/11/17 17:01 Last Admin: 06/14/17 08:21 Dose: 6.25 mg Dextrose/Water (Dextrose 50% (Syg)) 25 ml IVP AD PRN PRN Reason: Hypoglycemia Stop: 12/11/17 09:25 Glucagon (Glucagen) 1 mg IM ONCE PRN PRN Reason: Hypoglycemia Stop: 12/11/17 09:25 Glucose (Gluctose) 15 gm PO ONCE PRN PRN Reason: Hypoglycemia Stop: 12/11/17 09:25 Glucose (Gluctose) 30 gm PO ONCE PRN PRN Reason: Hypoglycemia Stop: 12/11/17 09:25 Heparin Sodium (Porcine) (Heparin) 4,000 unit 60 unit/kg (4000 unit) IVP Q6HR PRN PRN Reason: SEE COMMENTS Stop: 12/10/17 20:43 Heparin Sodium (Porcine) (Heparin) 2,000 unit 30 unit/kg (2000 unit) IVP Q6H PRN PRN Reason: SEE COMMENTS Stop: 12/10/17 20:43 Last Admin: 06/12/17 06:48 Dose: 2,000 unit Heparin Sodium/Dextrose (Heparin 25,000 Unit/500 Ml D5w) 25,000 unit in 500 mls @ 16.056 mls/hr IVC .Q24H [facility]; 12 UNIT/KG/HR PRN Reason: Protocol Stop: 12/10/17 18:16 Last Admin: 06/14/17 04:40 Dose: 15.9 unit/kg/hr, 21.274 mls/hr Dextrose (Dextrose 5%) 1,000 mls @ 100 mls/hr IVC .Q10H PRN PRN Reason: HYPOGLYCEMIA Stop: 12/11/17 09:25 Sodium Chloride (0.9 % Sodium Chloride) 1,000 mls @ 60 mls/hr IVC .[id number] [facility] Stop: 06/15/17 19:34 Insulin Human Lispro (Humalog) 0 units SQ TIDAC [facility] PRN Reason: Protocol Stop: 12/11/17 11:31 Last Admin: 06/14/17 08:12 Dose: Not Given Insulin Human Lispro (Humalog) 0 units SQ [facility] PRN Reason: Protocol Stop: 12/11/17 21:01 Last Admin: 06/13/17 21:58 Dose: Not Given Isosorbide Mononitrate (Imdur) 30 mg PO DAILY [facility] Stop: 12/13/17 09:01 Last Admin: 06/14/17 08:21 Dose: 30 mg Naloxone HCl (Narcan) 0.4 mg IVP Q2MIN PRN PRN Reason: SEE COMMENTS Stop: 12/10/17 20:00 Ondansetron HCl (Zofran) 4 mg IVP Q4H PRN; Protocol PRN Reason: Nausea Stop: 12/12/17 04:12 Senna/Docusate Sodium (Senna Plus) 1 each PO BID [facility] PRN Reason: Protocol Stop: 12/13/17 11:47 Last Admin: 06/14/17 08:21 Dose: 1 each Sodium Chloride (Sodium Chloride) 1 gm PO BID [facility] Stop: 06/14/17 21:01 Last Admin: 06/14/17 09:22 Dose: 1 gm - Imaging and Cardiology Echo: report reviewed - EKG Interpretation EKG results cardiology: other (12 hr tele AVG HR 79, SR, frequent ectopy, brief runs NSVT 3 beats) - VTE Documentation of Mechanical Device: Intermittent pneumatic compression device Consult Discharge Plan - Plan Referrals: Mj Bernabe MD [Primary Care Provider] -
[2017-06-14] MEDS ORDERED: *HR* Promethazine 25 MG/ML VIAL ONE (10:37)
--- NOTE | 2017-06-14 11:18 | Event Note ---
Date of Encounter: 06/14/17 Time of Encounter: 11:00 Patient presented with acute altered mental status in the setting of hyponatremia. Patient was somnolent, but awake. Unable to follow commands. No signs of active seizing. Will order stat CT of head and ABG.
[2017-06-14 11:44] LABS: Thyroid Stimulating Hormone 0.954 mcIU/mL (0.340-5.600)
[2017-06-14 14:21] LABS: Thyroid Stimulating Hormone 1.025 mcIU/mL (0.340-5.600)
[2017-06-14] MEDS ORDERED: Furosemide 20 MG/2 ML VIAL IVP ONE (15:39)
--- NOTE | 2017-06-14 15:46 | Nephrology Consult Note ---
Date of Encounter: 06/14/17 Time of Encounter: 15:40 Assessment and Plan (1) Hyponatremia Current Visit: Yes Status: Acute Patient is euvolemic to slightly hypovolemic. She has an adequate blood pressure. Her urine and serum osmolality suggests SIADH. ADH release can be caused by nausea such as what she had earlier in his hospital stay. She reports her nausea right now seems to be controlled. I agree with intravenous saline infusion. I recommend the addition of furosemide to attempt to decrease the urine osmolality. Monitor her serum sodium closely. At this time I did not think she will need tolvaptan, but if she does not respond to saline and furosemide I will give a trial of this medication. Maintain free water restriction of 1.5L daily. (2) Acute kidney injury Current Visit: Yes Status: Acute imProving. I suspect this is secondary to either diuretic use or decrease renal perfusion. (3) HTN (hypertension) Current Visit: Yes Status: Acute Blood pressure slightly elevated. I recommend permissive hypertension for now as long as her systolic blood pressure does not go above 160. Avoid hypotension as this can trigger ADH release. Qualifiers: Hypertension type: essential hypertension Qualified Code(s): I10 - Essential (primary) hypertension (4) NSTEMI (non-ST elevated myocardial infarction) Current Visit: Yes Status: Acute Per cardiology. Awaiting improved renal function and controlled hyponatremia. History of Present Illness - Reason for Consult Consult date: 06/14/17 hyponatremia - Chief Complaint Hyponatremia. - History of Present Illness Ms. Serra is an 86 yo woman with a history of hypertension who presents for the evaluation of weakness and was found to have NSTEMI, JULIA and hyponatremia. History was obtained from the patient, her family at the bedside and review of her electronic records. The patient's participation in the history was limited as she seemed to be lethargic. She presented to an outside hospital for the evaluation of dyspnea where she was found to have a non-ST elevation OK and transferred to [facility] for evaluation. Here she was found to have hyponatremia and acute kidney injury. Her renal function improved , however, her serum sodium level continued to decrease. He was counseled her to assist with hyponatremia. Past Med Surg Social Fam HX - Past Medical History Medical history: diabetes, hypertension, other Psychiatric history: no psych history - Social History Smoking Status: Never smoker Smokeless Tobacco Status: No Alcohol use: none Drug use: none Medications and Allergies Ergocalciferol (VITAMIN D2) [Vitamin D2] 50,000 unit PO VALENZUELA 05/12/15 [History] Lisinopril [Zestril] 20 mg PO DAILY 05/12/15 [History] cloNIDine HCl [CloNIDine HCl] 0.3 mg PO BID 05/12/15 [History] metFORMIN [Glucophage] 500 mg PO BIDWM 05/12/15 [History] Furosemide [Lasix] 40 mg PO DAILY PRN 06/11/17 [History] Potassium Chloride [Klor-Con 10] 10 meq PO BID 06/11/17 [History] Atenolol [Tenormin] 50 mg PO BID 06/12/17 [History] 3 Allergy/AdvReac Type Severity Reaction Status Date / Time No Known Allergies Allergy Verified 05/12/15 13:48 Review of Systems ROS unobtainable: due to mental status (He is able to answer most questions, however she has some confusion. Complete Review of systems was unobtainable.) All Systems: reviewed and no additional remarkable complaints except as stated Exam - Vital Signs Vital signs: Initial Vital Signs Temp Pulse Resp BP Pulse Ox 97.6 F 71 18 150/97 92 06/10/17 20:18 06/10/17 20:18 06/10/17 20:18 06/10/17 20:18 06/10/17 20:18 Vital Signs - Last 8 Hours Temp Pulse Resp BP Pulse Ox 06/14/17 11:08 97.3 F L 101 16 141/92 96 Intake and Output 06/13/17 06/14/17 06/14/17 23:59 07:59 15:59 Intake Total 240 / 240 500 / 500 0 / 0 Output Total 800 / 800 350 / 350 Balance 240 / 240 -300 / -300 -350 / -350 Intake: IV Fluids 500 / 500 Heparin 25,000 UNIT/500 ML D5W 500 / 500 25,000 unit In 500 ml @ 12 UNIT /KG/HR 16.056 mls/hr IVC .Q24H [facility] Rx#:[id number] Oral 240 / 240 0 / 0 0 / 0 Output: Emesis 50 / 50 Catheter 800 / 800 300 / 300 Other: Meal Dinner Breakfast Percent of Meal Consumed 25% 0% Blood Glucose* 194 174 178 - General Appearance General appearance: well-developed, well-nourished EENT: ATNC Neck: supple Respiratory: course breath sounds Cardiology: no edema, regular rate Gastrointestinal: no tenderness Integumentary: warm and dry Neurologic: confused Musculoskeletal: no cyanosis Psychiatric: mood/affect appropriate Results - Lab Results 06/14/17 05:10 06/14/17 14:05 Most recent lab results ABG pH 7.42 pH Units (7.32-7.45) 06/11/17 04:22 ABG pCO2 39 mmHg (35-45) 06/11/17 04:22 ABG pO2 113 mmHg (85-104) H 06/11/17 04:22 ABG HCO3 25 mEq/L (21-27) 06/11/17 04:22 ABG O2 Saturation 99 % (95-98) H 06/11/17 04:22 Calcium 8.9 mg/dL (8.6-10.3) 06/14/17 07:36 Magnesium 2.2 mg/dL (1.6-2.6) 06/11/17 02:40 Urine Sodium 16.6 mEq/L 06/14/17 10:45 Consult Discharge Plan - Plan Referrals: Mj Bernabe MD [Primary Care Provider] -
[2017-06-14] MEDS: 0.9 % Sodium Chloride 1,000 ML IVC SCH (16:21)
[2017-06-14 16:54] LABS: ABG Base Excess 6 mEq/L (-2 to 3); ABG HCO3 30 mEq/L (21-27); ABG Oxygen Saturation 99 % (95-98); ABG PCO2 43 mmHg (35-45); ABG PH 7.46 pH Units (7.32-7.45); ABG PO2 121 mmHg (85-104); ABG TCO2 32 mEq/L (20-26)
[2017-06-15] MEDS: 0.9 % Sodium Chloride 1,000 ML IVC SCH (01:19)
[2017-06-15] MEDS: Heparin 25,000 UNIT/500 ML D5W 25,000 UNIT/500 ML BAG IVC SCH (03:24)
[2017-06-15 06:05] LABS: Basophils % 0.2 %; Eosinophils # 0.1 K/mcL (0.0-0.6); Eosinophils % 1.3 %; Hematocrit 34.6 % (35.3-44.9); Hemoglobin 12.1 g/dL (11.5-15.4); Immature Granulocytes % 0.5 % (0-4); Lymphocytes # 1.3 K/mcL (0.6-4.6); Lymphocytes % 13.2 %; Mean Corpuscular Hemoglobin 29.5 pg (28.0-33.3); Mean Corpuscular Volume 84.4 fL (83.0-100.0); Mean Platelet Volume 10.1 fL (9.4-12.4); Monocytes # 0.8 K/mcL (0.0-1.3); Monocytes % 8.2 %; Neutrophils # 7.4 K/mcL (1.6-8.9); Platelet Count 283 K/mcL (140-400); Red Cell Distribution Width 12.7 % (11.5-14.5); Segmented Neutrophils % 76.6 %
[2017-06-15 06:29] LABS: BUN/Creatinine Ratio 32 (6-26); Blood Urea Nitrogen 33 mg/dL (8-23); Calcium 8.5 mg/dL (8.6-10.3); Carbon Dioxide 27 mEq/L (23-29); Chloride 91 mEq/L (98-107); Glucose 144 mg/dL (70-105); Osmolality,Calculated 270 (280-300); Sodium 125 mEq/L (136-145); eGFR For African Americans > 60 (> 60); eGFR For Non-African Americans 51 (> 60)
[2017-06-15] MEDS: Insulin LISPRO 300 UNITS/3 ML VIAL SQ SCH ×4 (08:18→21:45)
[2017-06-15] MEDS: Sennosides/Docusate Sodium TABLET PO SCH ×2 (08:28→21:45)
[2017-06-15] MEDS: Isosorbide MONOnitrate (24 HR) 30 MG TAB.ER.24H PO SCH (08:28)
[2017-06-15] MEDS: Aspirin 81 MG TAB.CHEW PO SCH (08:28)
--- NOTE | 2017-06-15 08:59 | Pre-Sedation Evaluation ---
Pre-sedation evaluation - Pre-sedation checklist Date of procedure: 06/15/17 Procedure: [facility] Recent Vitals: Last Vital Signs Temp 97.6 F 06/15/17 07:23 Pulse 68 06/15/17 07:23 Resp 15 06/15/17 07:23 BP 126/81 06/15/17 07:23 Pulse Ox 91 06/15/17 07:23 H&P (including ROS) documented in medical record: Yes Previous reaction to sedatives/anesthetics: No Dietary Status: NPO after Midnight Airway Assessment: Patient can open mouth completely, TMJ function normal ASA Classification *see protocol: CLASS II-Mild systemic disease Plan of Care: Pt appropriate candidate for procedure/moderate/conscious sedation , Risks/benefits of procedure/sedation discussed w/ patient/family
[2017-06-15] MEDS ORDERED: BENZOCAINE/MENTHOL 1 LOZENGE (BAG OF 6) MM PRN (09:07)
--- NOTE | 2017-06-15 09:11 | Internal Med Progress Note ---
<Reinaldo Michael - Last Filed: 06/15/17 09:05> Date of Encounter: 06/15/17 Time of Encounter: 08:45 - Assessment and plan (1) Hyponatremia Current Visit: Yes Status: Acute Assessment and plan: - Na as low as 118 on 06/14/17. - Urine osm 514 & urine sodium 16.6 - Likely hypovolemic hyponatremia in the setting of poor salt intake in the setting of diuresis for her CHF. - Nephrology on board and agrees with the hydration with IV NS. - Improves as Na 125 today. - Continue to hold diuretics. - Continue salt tablet and hydration with IV NS. - Continue to monitor serum Na closely. (2) NSTEMI (non-ST elevated myocardial infarction) Current Visit: Yes Status: Acute Assessment and plan: - Troponin 2.82, 3.05, 2.56. - EKG showed sinus rhythm with frequent PVC. - Patient denies chest pain or shortness of breath at this time. - Currently on heparin drip, aspirin, Lipitor, Coreg, Imdur. - Cardiology plans to have left heart cath today. Appreciate further recommendation from cardiology. (3) Acute on chronic systolic HF (heart failure) Current Visit: Yes Status: Acute Assessment and plan: - Chest x-ray on admission showed pulmonary vascular congestion with BNP of 2291. - Last Echo 06/02/2017: LVEF 35% with mild diastolic dysfunction. - Net -1570 mL since admission. - Continue to hold diuretics at this time given patient's hypovolemic hyponatremia. - Fluid restriction, strict I/O and daily weight. (4) CKD (chronic kidney disease) Current Visit: Yes Status: Acute Assessment and plan: - Renal function stable compared to yesterday. - Nephrology on board. - Continue hydration with IV NS. - Avoid nephrotoxin. - Continue to monitor renal function and electrolytes. Qualifiers: Chronic kidney disease stage: unspecified stage Qualified Code(s): N18.9 - Chronic kidney disease, unspecified (5) DVT prophylaxis Current Visit: Yes Status: Acute Assessment and plan: - Currently on heparin drip. - Subjective Interval history: Patient was seen and examined this morning. Patient complains of some sore throat. Patient denies chest pain/pressure, shortness of breath, nausea, vomiting, abdominal pain. - Constitutional Vitals: Temp Pulse Resp BP Pulse Ox 97.6 F 68 15 126/81 91 06/15/17 07:23 06/15/17 07:23 06/15/17 07:23 06/15/17 07:23 06/15/17 07:23 General appearance: Present: cooperative, A&O X 3, answers questions appropriately - Head Head exam: Present: normal inspection - Eye Eye exam: Present: EOMI - Neck Neck exam general surgery: Present: normal inspection, trachea midline - Respiratory Respiratory exam: Present: CTAB - Cardiovascular Cardiovascular exam: Present: RRR, +S1, +S2 - GI/Abdominal GI/Abdominal exam: Present: normal bowel sounds, soft. Absent: tenderness - Extremities Exam Extremities exam: Absent: cyanotic, pedal edema - Neurological Exam Neurological exam: Present: alert, no focal deficits. Absent: facial droop, speech deficit - Skin Skin exam: Present: dry, warm Internal Medicine: Result - Labs CBC & Chem 7: 06/15/17 05:50 06/15/17 05:50 Labs: Short CBC 06/15/17 Range/Units 05:50 WBC 9.6 (4.3-11.1) K/mcL Hgb 12.1 (11.5-15.4) g/dL Hct 34.6 L (35.3-44.9) % Plt Count 283 (140-400) K/mcL Neutrophils # 7.4 (1.6-8.9) K/mcL BMP 06/14/17 06/14/17 06/14/17 07:36 10:32 14:05 Sodium 118 L* 121 L 120 L* Potassium 4.1 Chloride 85 L Carbon Dioxide 25 BUN 42 H Creatinine 1.14 Glucose 171 H Calcium 8.9 06/14/17 06/14/17 06/15/17 17:56 22:09 01:28 Sodium 124 L 123 L 125 L Potassium Chloride Carbon Dioxide BUN Creatinine Glucose Calcium 06/15/17 05:50 Sodium 125 L Potassium 4.0 Chloride 91 L Carbon Dioxide 27 BUN 33 H Creatinine 1.03 Glucose 144 H Calcium 8.5 L - ABG Interpretation ABG results: ABG ABG pH 7.46 pH Units (7.32-7.45) H 06/14/17 16:51 ABG pCO2 43 mmHg (35-45) 06/14/17 16:51 ABG pO2 121 mmHg (85-104) H 06/14/17 16:51 ABG O2 Saturation 99 % (95-98) H 06/14/17 16:51 - Impressions Impressions Head CT 06/14/17 11:04 IMPRESSION: No acute intracranial abnormality. Chronic white matter microangiopathic ischemic changes. D/ / Shawn Ferrera MD / Shawn Ferrera MD Interpreting Provider: Shawn Ferrera MD - VTE Documentation of Mechanical Device: Intermittent pneumatic compression device Consult Discharge Plan - Plan Referrals: Mj Bernabe MD [Primary Care Provider] - <Michael Lin H - Last Filed: 06/15/17 09:35> Date of Encounter: 06/15/17 - Constitutional Vitals: Temp Pulse Resp BP Pulse Ox 97.6 F 68 15 126/81 91 06/15/17 07:23 06/15/17 07:23 06/15/17 07:23 06/15/17 07:23 06/15/17 07:23 Internal Medicine: Result - Labs CBC & Chem 7: 06/15/17 05:50 06/15/17 05:50 Labs: Short CBC 06/15/17 Range/Units 05:50 WBC 9.6 (4.3-11.1) K/mcL Hgb 12.1 (11.5-15.4) g/dL Hct 34.6 L (35.3-44.9) % Plt Count 283 (140-400) K/mcL Neutrophils # 7.4 (1.6-8.9) K/mcL BMP 06/14/17 06/14/17 06/14/17 07:36 10:32 14:05 Sodium 118 L* 121 L 120 L* Potassium 4.1 Chloride 85 L Carbon Dioxide 25 BUN 42 H Creatinine 1.14 Glucose 171 H Calcium 8.9 06/14/17 06/14/17 06/15/17 17:56 22:09 01:28 Sodium 124 L 123 L 125 L Potassium Chloride Carbon Dioxide BUN Creatinine Glucose Calcium 06/15/17 05:50 Sodium 125 L Potassium 4.0 Chloride 91 L Carbon Dioxide 27 BUN 33 H Creatinine 1.03 Glucose 144 H Calcium 8.5 L - ABG Interpretation ABG results: ABG ABG pH 7.46 pH Units (7.32-7.45) H 06/14/17 16:51 ABG pCO2 43 mmHg (35-45) 06/14/17 16:51 ABG pO2 121 mmHg (85-104) H 06/14/17 16:51 ABG O2 Saturation 99 % (95-98) H 06/14/17 16:51 - Impressions Impressions Head CT 06/14/17 11:04 IMPRESSION: No acute intracranial abnormality. Chronic white matter microangiopathic ischemic changes. D/ / Shawn Ferrera MD / Shawn Ferrera MD Interpreting Provider: Shawn Ferrera MD - Attending Attestation Hyponatremia likely secondary to poor oral intake and dehydration Continue mild hydration with normal saline, salt tablets Non-STEMI, possible cardiac catheterization per cardiology Continue heparin drip I examined this patient and my medical decision-making was reviewed with the Resident Physician. I agree with the documented findings, disposition and treatment plan as described except to the extent set forth below.
[2017-06-15] MEDS ORDERED: Furosemide 20 MG/2 ML VIAL IVP ONE (09:14)
--- NOTE | 2017-06-15 09:44 | Event Note ---
Date of Encounter: 06/15/17 Time of Encounter: 09:43 - Cardiology Event Note Renal function stable. Na has increased to 125 (118 yesterday). Alert and oriented. [facility] today for NSTEMI and CMP. R/B/A discussed. Pt agrees to proceed.
[2017-06-15] MEDS ORDERED: *HR* Heparin 10,000 UNIT/10 ML VIAL ONE (12:41)
[2017-06-15] MEDS ORDERED: ISOVUE-370 200 ML INFUS..BTL IV ONE (12:41)
[2017-06-15] MEDS ORDERED: Heparin 1,000 UNITS/500 mL 500 ML ONE (12:41)
[2017-06-15] MEDS ORDERED: 0.9 % Sodium Chloride 1,000 ML ONE (12:41)
[2017-06-15] MEDS ORDERED: Nitroglycerin 1,000 MCG/10 ML VIAL IV ONE (12:41)
--- NOTE | 2017-06-15 13:01 | Nephrology Progress Note ---
Date of Encounter: 06/16/17 Time of Encounter: 13:01 - Assessment and Plan (1) Hyponatremia Current Visit: Yes Status: Acute Sodium level improving with current management. Continue free water restriction. Patient was given furosemide to assist with increasing serum sodium level. (2) Acute kidney injury Current Visit: Yes Status: Acute Improved. Patient to get cardiac cath today. (3) HTN (hypertension) Current Visit: Yes Status: Acute Titrate antihypertensive medications as needed. Qualifiers: Hypertension type: essential hypertension Qualified Code(s): I10 - Essential (primary) hypertension (4) NSTEMI (non-ST elevated myocardial infarction) Current Visit: Yes Status: Acute Cardiac cath per cardiology. Subjective Principal diagnosis: chf exacerbation Interval history: Patient seen. No new complaint. She is feeling better and anticipates getting her heart cath. Objective - Vital Signs Vital signs: Vital Signs Temp Pulse Resp BP Pulse Ox 06/15/17 11:50 98.6 F 84 16 146/88 97 06/15/17 09:00 91 06/15/17 07:23 97.6 F 68 15 126/81 91 06/15/17 04:05 97.7 F 79 16 134/80 97 06/14/17 22:59 97.6 F 72 17 137/92 97 06/14/17 21:20 98 06/14/17 18:58 97.7 F 63 16 124/77 98 06/14/17 16:02 97.9 F 95 15 119/90 96 Intake and Output 06/14/17 06/15/17 06/15/17 23:59 07:59 15:59 Intake Total 600 / 600 1500 / 1500 Output Total 700 / 700 300 / 300 Balance -100 / -100 1200 / 1200 Intake: IV Fluids 200 / 200 1500 / 1500 0.9 % Sodium Chloride 1,000 ML 200 / 200 1000 / 1000 @ 75 mls/hr IVC .L15Q30H [facility] Rx #:[id number] Heparin 25,000 UNIT/500 ML D5W 500 / 500 25,000 unit In 500 ml @ 12 UNIT /KG/HR 16.056 mls/hr IVC .Q24H [facility] Rx#:[id number] Oral 400 / 400 0 / 0 Output: Catheter 700 / 700 300 / 300 Other: Weight 70.4 kg Blood Glucose* 174 146 183 Patient Weight 06/15/17 23:59 Weight 70.4 kg - General Appearance General appearance: Present: well-developed, well-nourished Cardiology: Present: regular rate Integumentary: Present: warm and dry Neurologic: Present: alert and oriented x3 Psychiatric: Present: mood/affect appropriate - Lab 06/16/17 06:04 06/16/17 10:55 Most recent lab results ABG pH 7.46 pH Units (7.32-7.45) H 06/14/17 16:51 ABG pCO2 43 mmHg (35-45) 06/14/17 16:51 ABG pO2 121 mmHg (85-104) H 06/14/17 16:51 ABG HCO3 30 mEq/L (21-27) H 06/14/17 16:51 ABG O2 Saturation 99 % (95-98) H 06/14/17 16:51 Calcium 8.5 mg/dL (8.6-10.3) L 06/15/17 05:50 Magnesium 2.2 mg/dL (1.6-2.6) 06/11/17 02:40 Urine Sodium 16.6 mEq/L 06/14/17 10:45 - VTE Documentation of Mechanical Device: Intermittent pneumatic compression device Consult Discharge Plan - Plan Instructions: Furosemide (By mouth), Aspirin (By mouth), Omeprazole (By mouth) , Nitroglycerin, Rapid Release (By mouth), Isosorbide Mononitrate (By mouth), Atorvastatin (By mouth), Clopidogrel (By mouth), Sodium Chloride (By mouth), Myocardial Infarction (DC), Heart Failure (DC), Left Heart Catheterization (DC) , Right Heart Catheterization (DC), Chronic Hypertension (DC) Additional Instructions: RISK FACTORS: STOP SMOKING: If you smoke, STOP. Smoking or tobacco use significantly increases your risk of heart disease because nicotine causes the arteries to narrow or constrict. It also causes fats to stick to the artery. Your chances of having a heart attack are greatly increased if you continue to smoke. For more information, call the education line for smoking cessation 2-586-PUNVRTC EAT A LOW FAT/CHOLESTEROL/SODIUM DIET: This diet may help reduce your chances of having a heart attack. LIFTING: Avoid lifting anything more than 10 pounds for 5-7 days Prior to straining, laughing, sneezing and/or coughing, apply manual pressure directly over insertion site. ACTIVITY: You may walk or climb stairs as tolerated You can resume sexual activity as tolerated In general, you are encouraged to engage in a minimum of 30 minutes or more of moderate intensity physical activity, such as brisk walking, daily or at least 3 -4 times weekly BATHING Do not submerge the site into water (bath tub, hot tub, swimming pool) for 1 week. This can be a source for infection into the blood stream. You may shower after 24 hours SITE CARE: After 24 hours, you may remove the dressing and leave the site open to air. Keep the site clean and dry. Clean gently and pat dry. You can expect bruising and tenderness that gradually resolve within a week or two. Return to work as instructed per your physician Resume driving as instructed per physician Keep all scheduled follow up appointments Resume medications as instructed IMPORTANT: If prescribed a Platelet Aggregation Inhibitor such as, Plavix, Brilinta or Effient: Duration of therapy is minimum one year These medications are often used in combination with Aspirin in prevention of future heart attacks Never discontinue unless consult with your Social Media Manager STROKE (CVA) Risk factors for a stroke are: Age, cigarette smoking, diabetes, excessive alcohol consumption, family history, high blood pressure, overweight, physical inactivity, prior stroke, heart attack, diagnosis of carotid artery stenosis or other artery disease. Warning signs: Sudden numbness or weakness of the face, arm or leg; especially on one side of the body, sudden confusion, trouble speaking or understanding, sudden trouble seeing in one or both eyes, sudden trouble walking, dizziness, loss of balance or coordination, sudden severe headache with no cause. Call 911 or go to the Emergency Room. CONGESTIVE HEART FAILURE: If you have been diagnosed with Congestive Heart Failure (CHF) and your symptoms return, make an appointment with your physician Weigh yourself daily. Notify your physician if you have a weight gain of two or more pounds in one day or five or more pounds in one week. If you experience any difficulty breathing, please call 911 BLEEDING: Although the risk of bleeding is minimal, it can happen. If you have any bleeding from the site, apply firm pressure above the puncture site for 10-15 minutes. If the bleeding does not stop, continue manual pressure and call 911 Contact your physician if: You develop a fever greater than 101 degrees Fahrenheit Your site becomes reddened or has any drainage You have an increase in pain or burning at the site or if a large knot forms at the site. If you experience chest pain, shortness of breath, dizziness, or extreme tiredness, stop the activity and rest. Please notify your physicians office if you experience any of these symptoms and they are not relieved by rest please call 911! Referrals: Mj Bernabe MD [Primary Care Provider] - Prescriptions: Nitroglycerin 0.3 mg SL Q5MIN PRN #14 tab.subl PRN Reason: Chest Pain Aspirin 81 mg PO DAILY #30 tab.chew Atorvastatin [Lipitor] 40 mg PO HS #30 tablet Clopidogrel [Plavix] 75 mg PO DAILY #30 tablet Furosemide [Lasix] 20 mg PO DAILY #14 tablet Isosorbide MONOnitrate (24 HR) [Imdur] 30 mg PO DAILY #30 tab.er.24h Omeprazole [PriLOSEC] 40 mg PO DAILY #30 capsule. Sodium Chloride 1 gm PO BID 7 Days #14 tablet
[2017-06-15] MEDS ORDERED: *HR* FentaNYL (PF) 100 MCG/2 ML VIAL ONE (13:43)
[2017-06-15] MEDS ORDERED: Verapamil 5 MG/2 ML VIAL ONE (13:43)
[2017-06-15] MEDS ORDERED: *HR* Midazolam HCl 2 MG/2 ML VIAL ONE (13:43)
--- NOTE | 2017-06-15 13:43 | Pre-Sedation Evaluation ---
Pre-sedation evaluation - Pre-sedation checklist Date of procedure: 06/15/17 Procedure: heart cath Recent Vitals: Last Vital Signs Temp 98.6 F 06/15/17 11:50 Pulse 84 06/15/17 11:50 Resp 16 06/15/17 11:50 BP 146/88 06/15/17 11:50 Pulse Ox 97 06/15/17 11:50 H&P (including ROS) documented in medical record: Yes Previous reaction to sedatives/anesthetics: No Dietary Status: NPO after Midnight Airway Assessment: Patient can open mouth completely, TMJ function normal ASA Classification *see protocol: CLASS II-Mild systemic disease Plan of Care: Pt appropriate candidate for procedure/moderate/conscious sedation , Risks/benefits of procedure/sedation discussed w/ patient/family
--- NOTE | 2017-06-15 14:33 | Invasive Diagnostic Lab Proc ---
Name: Thania Serra Date of Study: 06/15/2017 Date: 1930 Ht: 63.0in Medical Record#: [id number] Age: 86 Wt: 154.32lb Gender: Female BSA: 1.73 Order #: [id number] BMI: 27.34 Physicians Procedure Physician: Carloz Chung MD, FACC Referring MD: Referring MD: Staff Name Position Time In Alena Kinney RT (R) Monitor 01:44 PM Lexy Lewis RT (R) Scrub 01:44 PM Paperhanger Apprentice 01:45 PM Kenia Ramires RN Paperhanger Apprentice 01:45 PM Indications Indication Non-Stemi Procedures Performed Procedure L HRT ARTERY/VENTRICLE ANGIO Pre-Procedure Checklist Informed consent is complete signed and on chart. H&P is on chart. ID band is on and ID verified with patient. Patient NPO for procedure The procedure was described for the patient and questions were answered. Blood Pressure: 146/88 ECG is on chart. Plan of Care Patient will tolerate the procedure without complications. Adequate level of comfort will be maintained. Hemodynamics will remain stable Patient will recover from procedure without complications. Respiratory function will be maintained. Cardiac rhythm will remain stable. Patient temperature will be maintained. Patient and/or family have verbalized understanding of the procedure. Patient Education Chief Complaint/Reason for Test: Cardiac Cath Developmental Category: Geriatric (65+ years) Developmentally Appropriate for Age: Yes Learning Barriers: None Education Needs: Procedure Education Method: Verbal Information Taught: Cardiac Cath Educational Evaluation: Able to repeat information Intravenous Access Time IV Size Location DC'd Fluid/Drip Rate Units RN 12:57 PM 18g 1 03/24" Patent On Arrival Lt Lacey Iglesias RN Allergies No Known Allergies Vital Signs Time BP (mmHg) HR (bpm) O2 Sat. RR (bpm) LOC 12:57 PM 146 / 88 84 97 % 16 5 = Fully awake and oriented or at pre-proc level 01:47 PM / % 4 = Oriented but drowsy 01:47 PM / % 4 = Oriented but drowsy 02:02 PM / % 4 = Oriented but drowsy 01:44 PM 104 / 84 67 99 % 14 01:50 PM 148 / 95 83 98 % 18 01:55 PM 123 / 85 83 89 % 26 02:00 PM 121 / 73 75 98 % 17 02:05 PM 119 / 66 76 91 % 12 02:10 PM 126 / 71 74 93 % 14 Procedural Medications Time Medication Dose Units Method Given By 01:46 PM Oxygen 2 L/min nasal cannula Kenia Ramires RN 01:46 PM Versed 1 mg Intravenous Kenia Ramires RN 01:46 PM Fentanyl 25 mcg Intravenous Kenia Ramires RN 01:55 PM Oxygen 4 L/min nasal cannula Kenia Ramires RN 01:55 PM Lidocaine 2% 0.5 ml Subcutaneous Carloz Chung MD, FACC 01:56 PM Heparin 2000 units Nitroglycerin 200 mcg Verapamil 2.5 mg Intraarterial Carloz Chung MD, FACC 01:57 PM Oxygen 4 L/min Oxy Mask Kenia Ramires RN ASA Classification: CLASS II- Mild systemic disease (i.e. well-controlled diabetes, hypertension, asthma, cigarette smoking) Jesse Score Preprocedure Postprocedure Activity 2- Moves 4 extremities sustained head lift Activity 2- Moves 4 extremities sustained head lift Circulation 2- SBP +/= 20 points of pre-anesthetic level Circulation 2- SBP +/= 20 points of pre-anesthetic level Consciousness 2- Awake and alert oriented x 3 Consciousness 2- Awake and alert oriented x 3 O2 Saturation 2- Able to maintain O2 satruation of 92% on room air O2 Saturation 2- Able to maintain O2 satruation of 92% on room air Respiratory 2- Able to deep breathe and cough well Respiratory 2- Able to deep breathe and cough well Total Score 10 Total Score 10 Contrast Agent: Isovue Diagnostic Contrast: 66 ml Total Contrast: 66 ml Fluoro Dose: 266 mGy Procedure Log Time Note Enter By 01:44 PM Case Start 01:44 PM Vitals capture started with the following parameters, Patient=Adult, Interval=5 min, Initial Cgwvqniw=778 mmHg, Deflation Rate=3 mmHg, Cuff placed on Right Arm 01:44 PM Pt arrived to component lab tech 1 at 13:44 [email or web address] 01:44 PM HR=67 bpm, NTRL=526/84 mmhg, SpO2=99.0 %, Resp=14 B/min 01:44 PM Alena Kinney RT (R) Position: Monitor Time in: 13:44 [email or web address] 01:45 PM Lexy Lewis RT (R) Position: Scrub Time in: 13:44 [email or web address] 01:45 PM Position: Paperhanger Apprentice Time in: 13:45 [email or web address] 01:45 PM Patient charges- Angio tray pack, Navilyst 3mm J, Pulse Oximetry and ACIST tubing and transducer [email or web address] 01:45 PM Case Delayed No [email or web address] 01:45 PM Hair removed from procedure site in holding area using clippers. Right wrist prepped with Chloraprep by Alena Kinney RT (R), then patient was draped. Skin intact. [email or web address] 01:45 PM Physican paged/called 13:45. [email or web address] 01:45 PM Kenia Ramires RN Position: Paperhanger Apprentice Time in: 13:45 [email or web address] 01:45 PM Hair removed from procedure site in holding area using clippers. Right wrist prepped with Chloraprep by Lexy Lewis RT (R), then patient was draped. Skin intact. [email or web address] 01:45 PM Physician arrived 13:45 [email or web address] 01:46 PM ASA Class CLASS II- Mild systemic disease (i.e. well-controlled diabetes, hypertension, asthma, cigarette smoking) [email or web address] 01:46 PM Meet and sharee completed [email or web address] 01:46 PM Sign in performed according to hospital policy. [email or web address] 01:46 PM Procedure start 13:46 [email or web address] 01:46 PM Hair removed from procedure site in holding area using clippers. Right groin prepped with Chloraprep by Lexy Lewis RT (R), then patient was draped. Skin intact. [email or web address] 01:46 PM Time: 13:46 Oxygen on at 2 L/min per nasal cannula by Kenia Ramires RN [email or web address] 01:46 PM Time: 13:46 Versed 1 mg Intravenous Given by Kenia Ramires RN [email or web address] 01:47 PM Time: 13:46 Fentanyl 25 mcg Intravenous Given by Kenia Ramires RN [email or web address] 01:47 PM Time: 13:47 Patient comfortable and pain free: Yes [email or web address] :47 PM Time: 13:47LOC: 4 = Oriented but drowsy [email or web address] 01:50 PM Recorded ECG: HR=86 Condition=Condition 1 01:50 PM HR=83 bpm, KBOM=530/95 mmhg, SpO2=98.0 %, Resp=18 B/min 01:53 PM Pressure channel 1 zeroed. 01:53 PM Pressure channel 1 zeroed. 01:55 PM HR=83 bpm, VZVQ=520/85 mmhg, SpO2=89.0 %, Resp=26 B/min 01:55 PM Time: 13:55 Oxygen on at 4 L/min per nasal cannula by Kenia Ramires RN [email or web address] 01:55 PM Time out performed according to hospital policy [email or web address] 01:55 PM Time: 13:55 0.5 ml Lidocaine 2% to right radial Subcutaneous Given by Carloz Chung MD, [facility] [email or web address] 01:56 PM Access obtained by percutaneous puncture. 6Fr 10cm Terumo [place] sheath placed in right Radial artery. [id number] [email or web address] 01:56 PM Time: 13:56 Patient given 2,000 units Heparin, 200 mcg Nitroglycerin, and 2.5 mg Verapamil Intraarterial by Carloz Chung MD, [facility]. This is given to reduce risk of vessel spasm and thrombosis. [email or web address] 01:57 PM 0.035 260cm Navilyst 3mmJ wire [id number] [email or web address] 01:57 PM 5Fr TIG catheter inserted over the wire DNC [email or web address] 01:57 PM Time: 13:57 Oxygen on at 4 L/min per Oxy Mask by Kenia Ramires RN [email or web address] 01:58 PM Wire removed [email or web address] 01:58 PM 0.035 150cm VSI Donaldo-Torque wire [id number] [email or web address] 01:59 PM Pressure channel 1 zeroed. 01:59 PM LCA angiography performed in multiple views. [email or web address] 02:00 PM Recorded Pressure: Ao, HR=83, Condition=Condition 1 (Aorta) Ao 54/31/42 02:00 PM HR=75 bpm, EXGV=116/73 mmhg, SpO2=98 %, Resp=17 B/min 02:00 PM Recorded Pressure: Ao, HR=75, Condition=Condition 1 (Aorta) Ao 107/67/86 02:02 PM Time: 13:47LOC: 4 = Oriented but drowsy [email or web address] 02:02 PM Time: 13:47 Patient comfortable and pain free: Yes [email or web address] 02:03 PM Recorded Pressure: Ao, HR=76, Condition=Condition 1 (Aorta) Ao 107/69/87 02:03 PM Lesion found in Mid RCA. Pre Stenosis: 100 Pre GERALDO Flow: [email or web address] 02:04 PM Lesion found in Proximal RCA. Pre Stenosis: 70 Pre GERALDO Flow: [email or web address] 02:04 PM Catheter removed [email or web address] 02:04 PM 5Fr Pigtail catheter inserted over the wire [facility] [email or web address] 02:04 PM Lesion found in Mid LAD. Pre Stenosis: 95 Pre GERALDO Flow: 3: Complete and Brisk Flow/Perfusion [email or web address] 02:05 PM Lesion found in Proximal LAD. Pre Stenosis: 70 Pre GERALDO Flow: 3: Complete and Brisk Flow/Perfusion [email or web address] 02:05 PM HR=76 bpm, PZFH=642/66 mmhg, SpO2=91.0 %, Resp=12 B/min 02:06 PM Recorded Pressure: LV, HR=76, Condition=Condition 1 (Left Ventricle) LV 80/22/27 02:06 PM Catheter selectively placed in left ventricle [email or web address] 02:06 PM Bolus angiogram of left Ventricle complete: 12 ml/sec for a total of 36 mls [email or web address] 02:06 PM Recorded Pressure: LV, Ao, HR=82, Condition=Condition 1 (Left Ventricle) LV 121/19/31, (Aorta) Ao 104/27/62 02:07 PM Catheter removed [email or web address] 02:08 PM Procedure completed at 14:08 [email or web address] 02:08 PM Did you address GERALDO flow and Dominance? Yes [email or web address] 02:08 PM Coronary Dominance: right [email or web address] 02:09 PM Procedure completed at 14:09 [email or web address] 02:10 PM HR=74 bpm, QNMT=008/71 mmhg, SpO2=93.0 %, Resp=14 B/min 02:18 PM Time: 14:02 Patient comfortable and pain free: Yes [email or web address] 02:18 PM Time: 14:02LOC: 4 = Oriented but drowsy [email or web address] 02:19 PM Did you address GERALDO flow and Dominance? Yes [email or web address] 02:19 PM Sign out completed: Radiation Dose 266.09 mGy Fluoro Time: 1.7 Isovue 370 - 200ml contrast 66 ml given by Carloz Chung MD, [facility]. Complications: NoneCardiac Rehab Consult needed: YesConfirmed administered medications: Yes [email or web address] 02:19 PM Arterial sheath pulled, Vasc Band closure device used and was Successful S/N. [email or web address] 02:19 PM 10 ml air in Vasc Band. [email or web address] 02:19 PM Estimated Blood Loss: minimal [email or web address] 02:20 PM Post Blood Pressure 126/71 [email or web address] 02:20 PM Post ECG NSR [email or web address] 02:20 PM 14:20 Post Pulses Rt Radial 1+ [email or web address] 02:20 PM Information taught Cardiac Cath and Vasc Band [email or web address] 02:20 PM Education needs Procedure, Plan of Care, and Disease Process [email or web address] 02:20 PM Learning barriers :None [email or web address] 02:20 PM Education Methods Verbal [email or web address] 02:20 PM Education evaluation Able to repeat information [email or web address] 02:21 PM Site status No bleeding/hematoma - Rt Wrist as reported by Lexy Lewis RT (R) at 14:20 [email or web address] 02:21 PM Report given to Lexy RN Pt taken to E Room #24. 14:21 [email or web address] 02:21 PM Delay to floor No [email or web address] 02:21 PM Patient out of room: 14:21 [email or web address] Complications Complication None Hemodynamics Pressures Site Systolic/A Wave Diastolic/V Wave Mean AO 107 69 87 AO 104 27 62 AO 107 69 87 LV 121 19 31 Hemodynamics Hemodynamics Pressures Site Systolic/A Wave Diastolic/V Wave Mean AO 54 31 42 AO 107 67 86 AO 107 69 87 LV 80 22 27 LV 121 19 31 AO 104 27 62 Post Procedure Information Blood Pressure: 126/71 mmHg Rhythm: NSR Post procedural instructions were given Surgery consult for CABG Closure Device Time Device Success/Fail 06/15/2017 2:09:00 PM Manual Compression Successful Site Checks Time Location Status Staff Sheath In? Note 02:20 PM Rt Wrist No bleeding/hematoma Lexy Lewis RT (R) Pulses Time Site Pre-Procedure Post-Procedure Note 2:20:00 PM Rt Radial 1+ 1+ Updated by Alena Kinney [email or web address]) on 06/15/2017 2:27:39 PM electronically signed on 06/15/2017 2:28:11 PM with status of Final
--- NOTE | 2017-06-15 15:56 | Cardiothoracic Consult Note ---
Date of Encounter: 06/15/17 Time of Encounter: 15:52 Assessment and Plan (1) Acute systolic CHF (congestive heart failure) Current Visit: Yes Status: Acute The assessment and plan as outlined above was discussed with the patient and/or family members who expressed understanding and agreement. All questions were answered. I discussed coronary artery bypass grafting with the patient and her family. The right coronary artery does not appear graftable. She could possibly have grafts to her LAD, circumflex and diagonal arteries. However, the patient seems to be a prohibitive risk with an ejection fraction of 30% and age of 86. She is dyspneic at rest and walks with a walker only. The patient and her family are against open heart surgery and preferred to try medical therapy. At this point, all her questions were answered. - History of Present Illness History of present illness: Ms. Serra is a 86 year old female The patient is an 86-year-old female who presented with orthopnea, dyspnea and congestive heart failure. She did have a positive troponin of 2.08. Chest x- ray revealed pulmonary edema and she also had lower extremity edema. BNP was 2291. She was diuresed. Creatinine henrique to 1.63. Sodium fell to 123. Echocardiogram revealed ejection fraction of 35% with mild mitral regurgitation , tricuspid regurgitation and pulmonary hypertension. Cardiac catheterization revealed ejection fraction of 30-35%. She had heavily calcified coronary arteries. Her right coronary artery was 100%, but did fill by collaterals. However, this does not look like a graftable vessel. She had a 95% LAD lesion and a 95% circumflex lesion. Both of these arteries were heavily calcified and small and diffusely diseased. Past medical history is notable for hypertension and diabetes on oral agents. She has had lower back surgery in the past. Presently she walks with a walker. Social history. She lives by herself in [place]. Does not smoke. Does not drink alcohol. Family history is positive for coronary artery disease. Review of systems is negative for stroke or TIA. Negative for saphenous vein varicosities or strippings. Past Med Surg Social Fam HX - Past Medical History Medical history: diabetes, hypertension, other Psychiatric history: no psych history - Social History Smoking Status: Never smoker Smokeless Tobacco Status: No Alcohol use: none Drug use: none Medications and Allergies Ergocalciferol (VITAMIN D2) [Vitamin D2] 50,000 unit PO VALENZUELA 05/12/15 [History] Lisinopril [Zestril] 20 mg PO DAILY 05/12/15 [History] cloNIDine HCl [CloNIDine HCl] 0.3 mg PO BID 05/12/15 [History] metFORMIN [Glucophage] 500 mg PO BIDWM 05/12/15 [History] Furosemide [Lasix] 40 mg PO DAILY PRN 06/11/17 [History] Potassium Chloride [Klor-Con 10] 10 meq PO BID 06/11/17 [History] Atenolol [Tenormin] 50 mg PO BID 06/12/17 [History] 3 Allergy/AdvReac Type Severity Reaction Status Date / Time No Known Allergies Allergy Verified 05/12/15 13:48 All Systems Review: The remainder of the systems were reviewed and are negative Physical Examination Vital Signs, Last 4 Hours Temp Pulse Resp BP Pulse Ox 06/15/17 15:40 97.8 F 86 15 149/94 98 The patient is dyspneic at rest and using her accessory muscles of respiration. Pupils are equal, round and reactive to light and accommodation. No oral lesions. Neck is supple. Trachea in the midline. No thyromegaly or carotid bruits. Lungs are clear to percussion and auscultation. Heart is in a regular rate and rhythm. Abdomen is benign. No tenderness rebound or guarding. She is status post lower back surgery. Extremities she is status post repair of a fractured left ankle. Cranial nerves, motor and sensory intact. Results 06/15/17 05:50 06/15/17 09:51 Lab Results, Last 24 hours 06/14/17 06/14/17 06/14/17 17:56 18:25 22:09 WBC Hgb Hct Plt Count APTT 59.7 H Sodium 124 L 123 L Potassium Chloride Carbon Dioxide BUN Creatinine Glucose Calcium 06/15/17 06/15/17 06/15/17 01:28 05:50 05:50 WBC 9.6 Hgb 12.1 Hct 34.6 L Plt Count 283 APTT Sodium 125 L 125 L Potassium 4.0 Chloride 91 L Carbon Dioxide 27 BUN 33 H Creatinine 1.03 Glucose 144 H Calcium 8.5 L 06/15/17 09:51 WBC Hgb Hct Plt Count APTT Sodium 127 L Potassium Chloride Carbon Dioxide BUN Creatinine Glucose Calcium Consult Discharge Plan - Plan Referrals: Mj Bernabe MD [Primary Care Provider] -
[2017-06-16] MEDS ORDERED: Melatonin 3 MG TABLET PO ONE (04:51)
[2017-06-16] MEDS ORDERED: Melatonin 3 MG TABLET PO SCH (05:00)
[2017-06-16] MEDS: Heparin 25,000 UNIT/500 ML D5W 25,000 UNIT/500 ML BAG IVC SCH (05:56)
[2017-06-16 06:44] LABS: Basophils # 0.1 K/mcL (0.0-0.2); Basophils % 0.5 %; Eosinophils # 0.2 K/mcL (0.0-0.6); Eosinophils % 2.1 %; Hematocrit 36.6 % (35.3-44.9); Hemoglobin 12.4 g/dL (11.5-15.4); Immature Granulocytes % 0.5 % (0-4); Lymphocytes % 10.6 %; Mean Corpuscular HGB Conc 33.9 g/dL (31.6-35.5); Mean Corpuscular Hemoglobin 29.5 pg (28.0-33.3); Mean Corpuscular Volume 87.1 fL (83.0-100.0); Mean Platelet Volume 10.2 fL (9.4-12.4); Monocytes # 0.7 K/mcL (0.0-1.3); Monocytes % 7.2 %; Neutrophils # 7.4 K/mcL (1.6-8.9); Platelet Count 299 K/mcL (140-400); Red Cell Distribution Width 13.1 % (11.5-14.5); Segmented Neutrophils % 79.1 %
[2017-06-16 06:46] LABS: BUN/Creatinine Ratio 27 (6-26); Blood Urea Nitrogen 28 mg/dL (8-23); Calcium 8.9 mg/dL (8.6-10.3); Carbon Dioxide 28 mEq/L (23-29); Chloride 96 mEq/L (98-107); Glucose 156 mg/dL (70-105); Osmolality,Calculated 277 (280-300); Sodium 129 mEq/L (136-145); eGFR For African Americans > 60 (> 60); eGFR For Non-African Americans 51 (> 60)
--- NOTE | 2017-06-16 07:34 | Internal Med Progress Note ---
<IronalyLuiz evans - Last Filed: 06/16/17 11:13> Date of Encounter: 06/16/17 Time of Encounter: 07:25 - Assessment and plan (1) Hyponatremia Current Visit: Yes Status: Acute Assessment and plan: - Na as low as 118 on 06/14/17. - Urine osm 514 & urine sodium 16.6 - Likely hypovolemic hyponatremia in the setting of poor salt intake in the setting of diuresis for her CHF. - Nephrology on board. Currently not on IVF today. - Improves as Na 129 today (125 yesterday). - Continue to hold diuretics. - Continue salt tablet and hydration with IV NS. - Continue to monitor serum Na closely. (2) Acute on chronic systolic HF (heart failure) Current Visit: Yes Status: Acute Assessment and plan: - Chest x-ray on admission showed pulmonary vascular congestion with BNP of 2291. - Last Echo 06/02/2017: LVEF 35% with mild diastolic dysfunction. - Net -566 ml output last 24 hours. Weight increased from 70.4 kg to 72 kg. - Continue to hold diuretics at this time given patient's hypovolemic hyponatremia. - Fluid restriction, strict I/O and daily weight. (3) NSTEMI (non-ST elevated myocardial infarction) Current Visit: Yes Status: Acute Assessment and plan: - Troponin 2.82, 3.05, 2.56. - EKG showed sinus rhythm with frequent PVC. - Patient denies chest pain or shortness of breath at this time. - Currently on heparin drip, aspirin, Lipitor, Coreg, Imdur. - Cath report yesterday revealed ejection fraction of 30-35%. She had heavily calcified coronary arteries. Her right coronary artery was 100%, but did fill by collaterals. However, this does not look like a graftable vessel. She had a 95% LAD lesion and a 95% circumflex lesion. Patient seems to be a prohibitive risk with an ejection fraction of 30% and age of 86. She is dyspneic at rest and walks with a walker only. The patient and her family are against open heart surgery and preferred to try medical therapy. (4) CKD (chronic kidney disease) Current Visit: Yes Status: Chronic Assessment and plan: - Renal function stable compared to yesterday. Creatinine currently today at 1.02. - Nephrology on board. - Currently off of IVF. - Avoid nephrotoxin. - Continue to monitor renal function and electrolytes. Qualifiers: Chronic kidney disease stage: unspecified stage Qualified Code(s): N18.9 - Chronic kidney disease, unspecified (5) DVT prophylaxis Current Visit: Yes Status: Acute Assessment and plan: Currently on heparin drip. - Subjective Interval history: When seen today patient denies any chest pain, fever, cough, headaches, abdominal pain, nausea, or vomiting. Patient says that she has been able to eat. Patient is A and O 3. - Constitutional Vitals: Temp Pulse Resp BP Pulse Ox 96.4 F L 87 20 162/95 100 06/16/17 03:30 06/16/17 03:30 06/16/17 03:30 06/16/17 03:30 06/16/17 03:30 General appearance: Present: cooperative, A&O X 3, answers questions appropriately - Respiratory Respiratory exam: Present: CTAB. Absent: accessory muscle use, rales, rhonchi, wheezes - Cardiovascular Cardiovascular exam: Present: RRR, +S1, +S2, systolic murmur. Absent: diastolic murmur, gallop, rubs - GI/Abdominal GI/Abdominal exam: Present: normal bowel sounds, soft, no peritoneal signs. Absent: distended, guarding, rebound, tenderness - Extremities Exam Extremities exam: Present: full ROM, normal capillary refill, pedal edema (+1 bilateral pitting edema. Left leg appears more edematous than right leg.), radial pulses palpable and symmetrical. Absent: calf tenderness, cyanotic, tenderness Internal Medicine: Result - Labs CBC & Chem 7: 06/16/17 06:04 06/16/17 06:04 Labs: Short CBC 06/16/17 Range/Units 06:04 WBC 9.3 (4.3-11.1) K/mcL Hgb 12.4 (11.5-15.4) g/dL Hct 36.6 (35.3-44.9) % Plt Count 299 (140-400) K/mcL Neutrophils # 7.4 (1.6-8.9) K/mcL BMP 06/15/17 06/16/17 09:51 06:04 Sodium 127 L 129 L Potassium 4.0 Chloride 96 L Carbon Dioxide 28 BUN 28 H Creatinine 1.02 Glucose 156 H Calcium 8.9 - ABG Interpretation ABG results: ABG ABG pH 7.46 pH Units (7.32-7.45) H 06/14/17 16:51 ABG pCO2 43 mmHg (35-45) 06/14/17 16:51 ABG pO2 121 mmHg (85-104) H 06/14/17 16:51 ABG O2 Saturation 99 % (95-98) H 06/14/17 16:51 - VTE Documentation of Mechanical Device: Intermittent pneumatic compression device Consult Discharge Plan - Plan Instructions: Furosemide (By mouth), Aspirin (By mouth), Omeprazole (By mouth) , Nitroglycerin, Rapid Release (By mouth), Isosorbide Mononitrate (By mouth), Atorvastatin (By mouth), Clopidogrel (By mouth), Sodium Chloride (By mouth), Myocardial Infarction (DC), Heart Failure (DC), Left Heart Catheterization (DC) , Right Heart Catheterization (DC), Chronic Hypertension (DC) Additional Instructions: RISK FACTORS: STOP SMOKING: If you smoke, STOP. Smoking or tobacco use significantly increases your risk of heart disease because nicotine causes the arteries to narrow or constrict. It also causes fats to stick to the artery. Your chances of having a heart attack are greatly increased if you continue to smoke. For more information, call the education line for smoking cessation 7-473-BAYXXGU EAT A LOW FAT/CHOLESTEROL/SODIUM DIET: This diet may help reduce your chances of having a heart attack. LIFTING: Avoid lifting anything more than 10 pounds for 5-7 days Prior to straining, laughing, sneezing and/or coughing, apply manual pressure directly over insertion site. ACTIVITY: You may walk or climb stairs as tolerated You can resume sexual activity as tolerated In general, you are encouraged to engage in a minimum of 30 minutes or more of moderate intensity physical activity, such as brisk walking, daily or at least 3 -4 times weekly BATHING Do not submerge the site into water (bath tub, hot tub, swimming pool) for 1 week. This can be a source for infection into the blood stream. You may shower after 24 hours SITE CARE: After 24 hours, you may remove the dressing and leave the site open to air. Keep the site clean and dry. Clean gently and pat dry. You can expect bruising and tenderness that gradually resolve within a week or two. Return to work as instructed per your physician Resume driving as instructed per physician Keep all scheduled follow up appointments Resume medications as instructed IMPORTANT: If prescribed a Platelet Aggregation Inhibitor such as, Plavix, Brilinta or Effient: Duration of therapy is minimum one year These medications are often used in combination with Aspirin in prevention of future heart attacks Never discontinue unless consult with your Food Quality Tester STROKE (CVA) Risk factors for a stroke are: Age, cigarette smoking, diabetes, excessive alcohol consumption, family history, high blood pressure, overweight, physical inactivity, prior stroke, heart attack, diagnosis of carotid artery stenosis or other artery disease. Warning signs: Sudden numbness or weakness of the face, arm or leg; especially on one side of the body, sudden confusion, trouble speaking or understanding, sudden trouble seeing in one or both eyes, sudden trouble walking, dizziness, loss of balance or coordination, sudden severe headache with no cause. Call 911 or go to the Emergency Room. CONGESTIVE HEART FAILURE: If you have been diagnosed with Congestive Heart Failure (CHF) and your symptoms return, make an appointment with your physician Weigh yourself daily. Notify your physician if you have a weight gain of two or more pounds in one day or five or more pounds in one week. If you experience any difficulty breathing, please call 911 BLEEDING: Although the risk of bleeding is minimal, it can happen. If you have any bleeding from the site, apply firm pressure above the puncture site for 10-15 minutes. If the bleeding does not stop, continue manual pressure and call 911 Contact your physician if: You develop a fever greater than 101 degrees Fahrenheit Your site becomes reddened or has any drainage You have an increase in pain or burning at the site or if a large knot forms at the site. If you experience chest pain, shortness of breath, dizziness, or extreme tiredness, stop the activity and rest. Please notify your physicians office if you experience any of these symptoms and they are not relieved by rest please call 911! Referrals: Mj Bernabe MD [Primary Care Provider] - Prescriptions: Nitroglycerin 0.3 mg SL Q5MIN PRN #14 tab.subl PRN Reason: Chest Pain Aspirin 81 mg PO DAILY #30 tab.chew Atorvastatin [Lipitor] 40 mg PO HS #30 tablet Clopidogrel [Plavix] 75 mg PO DAILY #30 tablet Furosemide [Lasix] 20 mg PO DAILY #14 tablet Isosorbide MONOnitrate (24 HR) [Imdur] 30 mg PO DAILY #30 tab.er.24h Omeprazole [PriLOSEC] 40 mg PO DAILY #30 capsule. Sodium Chloride 1 gm PO BID 7 Days #14 tablet <Ajmary janeMichael moe H - Last Filed: 06/16/17 14:58> Date of Encounter: 06/16/17 - Constitutional Vitals: Temp Pulse Resp BP Pulse Ox 98.1 F 88 15 149/96 99 06/16/17 12:17 06/16/17 12:17 06/16/17 12:17 06/16/17 12:17 06/16/17 12:17 Internal Medicine: Result - Labs CBC & Chem 7: 06/16/17 06:04 06/16/17 10:55 Labs: Short CBC 06/16/17 Range/Units 06:04 WBC 9.3 (4.3-11.1) K/mcL Hgb 12.4 (11.5-15.4) g/dL Hct 36.6 (35.3-44.9) % Plt Count 299 (140-400) K/mcL Neutrophils # 7.4 (1.6-8.9) K/mcL BMP 06/16/17 06/16/17 06:04 10:55 Sodium 129 L 130 L Potassium 4.0 Chloride 96 L Carbon Dioxide 28 BUN 28 H Creatinine 1.02 Glucose 156 H Calcium 8.9 - ABG Interpretation ABG results: ABG ABG pH 7.46 pH Units (7.32-7.45) H 06/14/17 16:51 ABG pCO2 43 mmHg (35-45) 06/14/17 16:51 ABG pO2 121 mmHg (85-104) H 06/14/17 16:51 ABG O2 Saturation 99 % (95-98) H 06/14/17 16:51 - Attending Attestation Hyponatremia likely secondary to poor oral intake and dehydration Continue mild hydration with normal saline, salt tablets Non-STEMI, severe CAD, patient decided to continue medical management only and no CABG, risks explained Plavix added I examined this patient and my medical decision-making was reviewed with the Resident Physician. I agree with the documented findings, disposition and treatment plan as described except to the extent set forth below.
[2017-06-16] MEDS: Insulin LISPRO 300 UNITS/3 ML VIAL SQ SCH ×4 (08:49→22:09)
[2017-06-16] MEDS: Aspirin 81 MG TAB.CHEW PO SCH (08:50)
[2017-06-16] MEDS: Sennosides/Docusate Sodium TABLET PO SCH ×2 (08:50→22:09)
[2017-06-16] MEDS: Isosorbide MONOnitrate (24 HR) 30 MG TAB.ER.24H PO SCH (08:50)
--- NOTE | 2017-06-16 10:20 | Cardiology Progress Note ---
Date of Encounter: 06/16/17 Time of Encounter: 10:18 Assessment and Plan (1) NSTEMI (non-ST elevated myocardial infarction) Current Visit: Yes Status: Acute Troponins 3.05, 2.82, 2.56, 2.08. Chest pain free. TTE 06/02/17 found to have reduced EF of 35%. On heparin gtt, ASA, Statin, BB. [facility] yesterday severe 3 vessel disease. Eval[address] by CT surgery. Pt and family decline CABG at this time, wish to proceed with medical management. Will start Plavix. Continue ASA, Statin, BB. Will resume low dose ACEi since renal function is stable s/p LH. Right radial access site healing well. No bleeding, hematoma or ecchymosis noted. Cardiology signing off. Reconsult PRN. Will coordinate outpt follow-up in 1 week. Pt's daugther requests PT eval and social work consult to discuss placement at [facility]. (2) Acute systolic CHF (congestive heart failure) Current Visit: Yes Status: Acute EF found to be 35% on outpt TTE 06/02/17. Was on IV lasix, stopped due to worsening renal function that is now stable. Start PO maintenance Lasix 20mg daily. Pt appears near euvolemic on exam. Recommend 2L fluid restriction, daily weights, Na restriction, Strict I/Os. ICMP. Continue BB and add low dose ACEi. (3) CKD (chronic kidney disease) Current Visit: Yes Status: Acute Follows with Dr. Gonzalez in nephrology. Creatinine stable. Qualifiers: Qualified Code(s): N18.9 - Chronic kidney disease, unspecified (4) Hyponatremia Current Visit: Yes Status: Acute Na as low as 118. Was replaced, improved to 129 today. Hospitalist and nephrology to manage. Discussion w patient/family: The assessment and plan as outlined above was discussed with the patient and/or family members who expressed understanding and agreement. All questions were answered. Thank you for involving us in the care of your patient. Please call with any questions. I will discuss all the above with Dr. Emerson and make changes as necessary. Subjective Principal diagnosis: chf exacerbation Interval history: Pt denies chest pain this AM. Dyspnea has improved. [facility] yesterday severe [address] surgery was consulted. Family declines CABG at this time and prefer medical management. Objective Vital Signs, Last 4 Hours Temp Pulse Resp BP Pulse Ox 06/16/17 09:07 98 06/16/17 08:13 98.1 F 95 15 176/98 98 Vital Signs Temp Pulse Resp BP Pulse Ox 06/16/17 09:07 98 06/16/17 08:13 98.1 F 95 15 176/98 98 06/16/17 03:30 96.4 F L 87 20 162/95 100 06/15/17 23:44 97 06/15/17 20:01 97.7 F 76 18 129/60 98 06/15/17 17:15 129/60 06/15/17 16:45 18 152/103 99 06/15/17 15:53 98.1 F 76 15 129/67 99 06/15/17 15:45 152/95 06/15/17 15:40 97.8 F 86 15 149/94 98 06/15/17 15:15 62 142/82 06/15/17 15:00 67 18 145/81 96 06/15/17 14:45 63 18 136/88 99 06/15/17 14:30 61 137/84 06/15/17 11:50 98.6 F 84 16 146/88 97 Intake and Output 06/15/17 06/16/17 06/16/17 23:59 07:59 15:59 Intake Total 362 / 362 134 / 134 312 / 312 Output Total 0 / 0 700 / 700 Balance 362 / 362 -566 / -566 312 / 312 Intake: IV Fluids 122 / 122 134 / 134 72 / 72 Heparin 25,000 UNIT/500 ML D5W 122 / 122 134 / 134 72 / 72 25,000 unit In 500 ml @ 12 UNIT /KG/HR 16.056 mls/hr IVC .Q24H [facility] Rx#:[id number] Oral 240 / 240 0 / 0 240 / 240 Output: Urine 0 / 0 700 / 700 Catheter 0 / 0 0 / 0 Other: Meal Dinner Breakfast Percent of Meal Consumed 60% 75% Weight 72 kg Blood Glucose* 201 Patient Weight 06/16/17 23:59 Weight 72 kg General: Conversant, No Apparent Distress HEENT: Atraumatic, Normocephaly, Mucus Membranes Moist Neck: No JVD, Normal carotid pulses Cardiac: Reg Rate and Rhythm, Normal S1 and S2, No Murmur Lungs: Normal Breath Sounds, No Wheeze, Rales, Rhonchi Neuro: Alert and responsive, No focal deficits noted Abdomen: Soft, Non-Tender Skin: Other (right radial access site healing well. No bleeding, hematoma or ecchymosis noted.) Musculoskeletal: No Chest Wall Tenderness Extremities: Other (mild LE edema) Results 06/16/17 06:04 06/16/17 06:04 Lab Results 06/15/17 06/15/17 06/16/17 09:51 21:56 06:04 WBC 9.3 Hgb 12.4 Hct 36.6 Plt Count 299 APTT 64.1 H Sodium 127 L Potassium Chloride Carbon Dioxide BUN Creatinine Glucose Calcium 06/16/17 06/16/17 06:04 07:27 WBC Hgb Hct Plt Count APTT 90.2 H Sodium 129 L Potassium 4.0 Chloride 96 L Carbon Dioxide 28 BUN 28 H Creatinine 1.02 Glucose 156 H Calcium 8.9 Short CBC 06/16/17 Range/Units 06:04 WBC 9.3 (4.3-11.1) K/mcL Hgb 12.4 (11.5-15.4) g/dL Hct 36.6 (35.3-44.9) % Plt Count 299 (140-400) K/mcL Neutrophils # 7.4 (1.6-8.9) K/mcL BMP 06/16/17 06/15/17 Range/Units 06:04 09:51 Sodium 129 L 127 L (136-145) mEq/L Potassium 4.0 (3.5-5.1) mEq/L Chloride 96 L (98-107) mEq/L Carbon Dioxide 28 (23-29) mEq/L BUN 28 H (8-23) mg/dL Creatinine 1.02 (0.60-1.20) mg/dL Glucose 156 H (70-105) mg/dL Calcium 8.9 (8.6-10.3) mg/dL Active Medications Acetaminophen (Tylenol) 650 mg PO Q6HR PRN PRN Reason: Mild Pain/Fever Stop: 12/10/17 18:07 Hydrocodone Bitart/Acetaminophen ([place] 5-325 Mg) 1 tab PO Q6HR PRN PRN Reason: Moderate Pain Stop: 12/10/17 18:07 Aspirin (Aspirin) 81 mg PO DAILY EMILY Stop: 12/14/17 09:01 Last Admin: 06/16/17 08:50 Dose: 81 mg Atorvastatin Calcium (Lipitor) 40 mg PO HS EMILY Stop: 12/13/17 21:01 Last Admin: 06/15/17 21:45 Dose: 40 mg Benzocaine/Menthol (Chloraseptic Sore Throat Lozng) 1 lozenge MM Q2H PRN PRN Reason: Sore Throat Stop: 12/15/17 09:08 Last Admin: 06/15/17 12:03 Dose: 1 lozenge Bisacodyl (Dulcolax) 5 mg PO DAILY PRN PRN Reason: Constipation Stop: 12/11/17 14:20 Last Admin: 06/16/17 08:54 Dose: 5 mg Carvedilol (Coreg) 6.25 mg PO BIDWM [facility] PRN Reason: Protocol Stop: 12/11/17 17:01 Last Admin: 06/16/17 08:49 Dose: 6.25 mg Dextrose/Water (Dextrose 50% (Syg)) 25 ml IVP AD PRN PRN Reason: Hypoglycemia Stop: 12/11/17 09:25 Glucagon (Glucagen) 1 mg IM ONCE PRN PRN Reason: Hypoglycemia Stop: 12/11/17 09:25 Glucose (Gluctose) 15 gm PO ONCE PRN PRN Reason: Hypoglycemia Stop: 12/11/17 09:25 Glucose (Gluctose) 30 gm PO ONCE PRN PRN Reason: Hypoglycemia Stop: 12/11/17 09:25 Heparin Sodium (Porcine) (Heparin) 5,000 unit SQ Q12HCO [facility] Stop: 12/16/17 18:01 Dextrose (Dextrose 5%) 1,000 mls @ 100 mls/hr IVC .Q10H PRN PRN Reason: HYPOGLYCEMIA Stop: 12/11/17 09:25 Insulin Human Lispro (Humalog) 0 units SQ TIDAC [facility] PRN Reason: Protocol Stop: 12/11/17 11:31 Last Admin: 06/16/17 08:49 Dose: 4 units Insulin Human Lispro (Humalog) 0 units SQ HS [facility] PRN Reason: Protocol Stop: 12/11/17 21:01 Last Admin: 06/15/17 21:45 Dose: Not Given Isosorbide Mononitrate (Imdur) 30 mg PO DAILY [facility] Stop: 12/13/17 09:01 Last Admin: 06/16/17 08:50 Dose: 30 mg Naloxone HCl (Narcan) 0.4 mg IVP Q2MIN PRN PRN Reason: SEE COMMENTS Stop: 12/10/17 20:00 Omeprazole (Prilosec) 40 mg PO DAILY@0630 EMILY PRN Reason: Protocol Stop: 12/16/17 08:31 Last Admin: 06/16/17 08:54 Dose: 40 mg Ondansetron HCl (Zofran) 4 mg IVP Q4H PRN; Protocol PRN Reason: Nausea Stop: 12/12/17 04:12 Last Admin: 06/14/17 14:02 Dose: 4 mg Senna/Docusate Sodium (Senna Plus) 1 each PO BID EMILY PRN Reason: Protocol Stop: 12/13/17 11:47 Last Admin: 06/16/17 08:50 Dose: 1 each Sodium Chloride (Sodium Chloride) 2 gm PO TID EMILY Stop: 12/14/17 15:16 Last Admin: 06/16/17 08:50 Dose: 2 gm - Imaging and Cardiology Echo: report reviewed Cardiac cath: report reviewed - EKG Interpretation EKG results cardiology: other (12 hr tele AVG HR 82, SR, no significant pauses or arrhythmias noted.) - VTE Documentation of Mechanical Device: Graduated compression elastic hosiery Consult Discharge Plan - Plan Referrals: Mj Bernabe MD [Primary Care Provider] -
--- NOTE | 2017-06-16 10:33 | Discharge Summary ---
<AdolfoLuzi crockett - Last Filed: 06/16/17 13:00> Orders not resulted at time of discharge: Pending orders 06/12/17 09:54 Left Heart Cath [CL Cardiac Catheterization] [CL] Routine 06/16/17 11:00 Sodium Routine Date of Encounter: 06/16/17 Time of Encounter: 07:25 - Discharge Diagnosis (1) Hyponatremia Priority: Primary Status: Acute (2) Acute on chronic systolic HF (heart failure) Priority: Primary Status: Acute (3) NSTEMI (non-ST elevated myocardial infarction) Priority: Primary Status: Acute (4) CKD (chronic kidney disease) Priority: Primary Status: Chronic Qualifiers: Chronic kidney disease stage: unspecified stage Qualified Code(s): N18.9 - Chronic kidney disease, unspecified (5) DVT prophylaxis Priority: Primary Status: Acute Hospital course: Ms. Serra is a 86 year old female with past medical history that include hypertension, diabetes, CAD, and CHF. Last echo result showed an EF of 35%. She came as a transfer with complaints of shortness of breath and elevated troponin. Patient was given Lasix. Troponins were elevated at 2.82, 3.05 and 2.56. ECG showed sinus rhythm with frequent PVCs. Chest x-ray showed pulmonary vascular congestion with a BMP of 2291. Diuretics were on hold given hypovolemic hyponatremia. Patients sodium fell down to 118 and became somnolent and confused. Etiology was attributed to hypovolemia. Pateint displayed no sign of focal neurologic symtpoms. She had a stat CT of the head done which was negative for acute changes. She was started on salt tablets and was given 75 cc /hr NS. Na sodium level improved with treatment. 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 CABG is recommended but patient and her family prefers medical management.Today patients sodium improved to 130. Vitals are stable. When seen today patient denies any chest pain, fever, cough, headaches, abdominal pain, nausea, or vomiting. Patient says that she has been able to eat. Patient is alert and oriented 3. Patient can continue her atenolol and lisinopril at home. She will be discharged with imdur, plavix, aspirin, statin, low dose lasix , and nitroglycerin tabs. Patient to continue sodium chloride tablets for 1 week. Patient will need to follow-up with PCP in 1 week. - Time Spent with Patient Total time spent providing and/or coordinating discharge services: Greater than 30 minutes - Discharge Medications Prescriptions: Nitroglycerin 0.3 mg SL Q5MIN PRN #14 tab.subl PRN Reason: Chest Pain Aspirin 81 mg PO DAILY #30 tab.chew Atorvastatin [Lipitor] 40 mg PO HS #30 tablet Clopidogrel [Plavix] 75 mg PO DAILY #30 tablet Furosemide [Lasix] 20 mg PO DAILY #14 tablet Isosorbide MONOnitrate (24 HR) [Imdur] 30 mg PO DAILY #30 tab.er.24h Omeprazole [PriLOSEC] 40 mg PO DAILY #30 capsule. Sodium Chloride 1 gm PO BID 7 Days #14 tablet Home Medications: Ergocalciferol (VITAMIN D2) [Vitamin D2] 50,000 unit PO VALENZUELA 05/12/15 [History] Lisinopril [Zestril] 20 mg PO DAILY 05/12/15 [History] cloNIDine HCl [CloNIDine HCl] 0.3 mg PO BID 05/12/15 [History] metFORMIN [Glucophage] 500 mg PO BIDWM 05/12/15 [History] Potassium Chloride [Klor-Con 10] 10 meq PO BID 06/11/17 [History] Atenolol [Tenormin] 50 mg PO BID 06/12/17 [History] Aspirin 81 mg PO DAILY #30 tab.chew 06/16/17 [Rx] Atorvastatin [Lipitor] 40 mg PO HS #30 tablet 06/16/17 [Rx] Clopidogrel [Plavix] 75 mg PO DAILY #30 tablet 06/16/17 [Rx] Furosemide [Lasix] 20 mg PO DAILY #14 tablet 06/16/17 [Rx] Isosorbide MONOnitrate (24 HR) [Imdur] 30 mg PO DAILY #30 tab.er.24h 06/16/17 [ Rx] Nitroglycerin 0.3 mg SL Q5MIN PRN #14 tab.subl 06/16/17 [Rx] Omeprazole [PriLOSEC] 40 mg PO DAILY #30 capsule. 06/16/17 [Rx] Sodium Chloride 1 gm PO BID 7 Days #14 tablet 06/16/17 [Rx] Allergies/Adverse Reactions: 3 Allergy/AdvReac Type Severity Reaction Status Date / Time No Known Allergies Allergy Verified 05/12/15 13:48 Date of admission: 06/10/17 17:47 Primary care physician: Mj Bernabe MD Consults: 06/10/17 20:38 Consult to Cardiology [CONS] Routine Comment: Consulting Provider: Cardiology Nataly Reason for Consult: NSTMI and Ischemic Cardiomyopathy Time Notified: 20:39 Call Completed: No 06/13/17 14:57 Consult to Nurse Navigator [CONS] Routine Comment: Acute CHF; N-stemi 06/14/17 11:45 Consult to Nephrology [CONS] Stat Consulting Provider: Kidney Nataly/WILD/KALEB/MEAGHAN Reason for Consult: Hyponatremia in setting of acute AMS Call Completed: Yes 06/14/17 14:10 Consult to PICC team [Consult to Invasive Line Access Team] [CONS] Routine Reason for Consult: iv access Line Type: EPIV 06/15/17 14:17 Consult to Cardiothoracic Surgery [CONS] Routine Consulting Provider: Cardiothoracic Surgery Nataly Reason for Consult: open heart Call Completed: Yes 06/15/17 19:13 Consult to Occupational Therapy [CONS] Routine Comment: Evaluate, develop and implement POC Reason for Consult: may need rehab Does patient have active BEDREST order?: No Is patient medically & hemodynamically stable?: Yes Patient assessed for mobility or mobilized this visit?: Yes Consult to Physical Therapy [CONS] Routine Comment: Evaluate, develop and implement POC Reason for Consult: may need rehab Does patient have active BEDREST order?: No Is patient medically & hemodynamically stable?: Yes Patient assessed for mobility or mobilized this visit?: Yes 06/16/17 09:50 Consult to Oil Field Operator [CONS] Routine Reason for SW Consult: Patient wants to go to rehab at [place]; PT/OT to see today; Patient has standard [facility] A&B Discharging clinician: Luiz Mirza Anticipated date of discharge: 06/16/17 - Constitutional Vitals: Temp Pulse Resp BP Pulse Ox 98.1 F 95 15 176/98 98 06/16/17 08:13 06/16/17 08:13 06/16/17 08:13 06/16/17 08:13 06/16/17 09:07 General appearance: Present: cooperative, A&O X 3, answers questions appropriately - Respiratory Respiratory exam: Present: CTAB. Absent: accessory muscle use, rales, rhonchi, wheezes - Cardiovascular Cardiovascular exam: Present: RRR, +S1, +S2, systolic murmur. Absent: diastolic murmur, gallop, rubs - GI/Abdominal GI/Abdominal exam: Present: normal bowel sounds, soft, no peritoneal signs. Absent: distended, tenderness - Extremities Exam Extremities exam: Present: warm, radial pulses palpable and symmetrical. Absent : calf tenderness, cyanotic, pedal edema - Patient Status Disposition: Transfer SNF Condition: Fair Overall status at discharge: patient is progressing back to baseline - Discharge Instructions Instructions: Furosemide (By mouth), Aspirin (By mouth), Omeprazole (By mouth) , Nitroglycerin, Rapid Release (By mouth), Isosorbide Mononitrate (By mouth), Atorvastatin (By mouth), Clopidogrel (By mouth), Sodium Chloride (By mouth), Myocardial Infarction (DC), Heart Failure (DC), Left Heart Catheterization (DC) , Right Heart Catheterization (DC), Chronic Hypertension (DC) Follow Up With: Mj Bernabe MD [Primary Care Provider] - Additional Instructions: RISK FACTORS: STOP SMOKING: If you smoke, STOP. Smoking or tobacco use significantly increases your risk of heart disease because nicotine causes the arteries to narrow or constrict. It also causes fats to stick to the artery. Your chances of having a heart attack are greatly increased if you continue to smoke. For more information, call the education line for smoking cessation 7-826-YFNOLMX EAT A LOW FAT/CHOLESTEROL/SODIUM DIET: This diet may help reduce your chances of having a heart attack. LIFTING: Avoid lifting anything more than 10 pounds for 5-7 days Prior to straining, laughing, sneezing and/or coughing, apply manual pressure directly over insertion site. ACTIVITY: You may walk or climb stairs as tolerated You can resume sexual activity as tolerated In general, you are encouraged to engage in a minimum of 30 minutes or more of moderate intensity physical activity, such as brisk walking, daily or at least 3 -4 times weekly BATHING Do not submerge the site into water (bath tub, hot tub, swimming pool) for 1 week. This can be a source for infection into the blood stream. You may shower after 24 hours SITE CARE: After 24 hours, you may remove the dressing and leave the site open to air. Keep the site clean and dry. Clean gently and pat dry. You can expect bruising and tenderness that gradually resolve within a week or two. Return to work as instructed per your physician Resume driving as instructed per physician Keep all scheduled follow up appointments Resume medications as instructed IMPORTANT: If prescribed a Platelet Aggregation Inhibitor such as, Plavix, Brilinta or Effient: Duration of therapy is minimum one year These medications are often used in combination with Aspirin in prevention of future heart attacks Never discontinue unless consult with your Motor Builder Assembler STROKE (CVA) Risk factors for a stroke are: Age, cigarette smoking, diabetes, excessive alcohol consumption, family history, high blood pressure, overweight, physical inactivity, prior stroke, heart attack, diagnosis of carotid artery stenosis or other artery disease. Warning signs: Sudden numbness or weakness of the face, arm or leg; especially on one side of the body, sudden confusion, trouble speaking or understanding, sudden trouble seeing in one or both eyes, sudden trouble walking, dizziness, loss of balance or coordination, sudden severe headache with no cause. Call 911 or go to the Emergency Room. CONGESTIVE HEART FAILURE: If you have been diagnosed with Congestive Heart Failure (CHF) and your symptoms return, make an appointment with your physician Weigh yourself daily. Notify your physician if you have a weight gain of two or more pounds in one day or five or more pounds in one week. If you experience any difficulty breathing, please call 911 BLEEDING: Although the risk of bleeding is minimal, it can happen. If you have any bleeding from the site, apply firm pressure above the puncture site for 10-15 minutes. If the bleeding does not stop, continue manual pressure and call 911 Contact your physician if: You develop a fever greater than 101 degrees Fahrenheit Your site becomes reddened or has any drainage You have an increase in pain or burning at the site or if a large knot forms at the site. If you experience chest pain, shortness of breath, dizziness, or extreme tiredness, stop the activity and rest. Please notify your physicians office if you experience any of these symptoms and they are not relieved by rest please call 911! - Diet and Activity Activity: as per physical therapy Diet: diabetic diet - VTE Documentation of Mechanical Device: Graduated compression elastic hosiery <Michael Lin - Last Filed: 06/17/17 15:38> Orders not resulted at time of discharge: Pending orders 06/12/17 09:54 Left Heart Cath [CL Cardiac Catheterization] [CL] Routine Date of Encounter: 06/17/17 Hospital course: Ms. Serra is a 86 year old female - Time Spent with Patient Total time spent providing and/or coordinating discharge services: Date of admission: 06/10/17 17:47 Primary care physician: Mj Bernabe MD Consults: 06/10/17 20:38 Consult to Cardiology [CONS] Routine Comment: Consulting Provider: Cardiology Nataly Reason for Consult: NSTMI and Ischemic Cardiomyopathy Time Notified: 20:39 Call Completed: No 06/13/17 14:57 Consult to Nurse Navigator [CONS] Routine Comment: Acute CHF; N-stemi 06/14/17 11:45 Consult to Nephrology [CONS] Stat Consulting Provider: Kidney Nataly/WILD/KALEB/MEAGHAN Reason for Consult: Hyponatremia in setting of acute AMS Call Completed: Yes 06/14/17 14:10 Consult to PICC team [Consult to Invasive Line Access Team] [CONS] Routine Reason for Consult: iv access Line Type: EPIV 06/15/17 14:17 Consult to Cardiothoracic Surgery [CONS] Routine Consulting Provider: Cardiothoracic Surgery Nataly Reason for Consult: open heart Call Completed: Yes 06/15/17 19:13 Consult to Occupational Therapy [CONS] Routine Comment: Evaluate, develop and implement POC Reason for Consult: may need rehab Does patient have active BEDREST order?: No Is patient medically & hemodynamically stable?: Yes Patient assessed for mobility or mobilized this visit?: Yes Consult to Physical Therapy [CONS] Routine Comment: Evaluate, develop and implement POC Reason for Consult: may need rehab Does patient have active BEDREST order?: No Is patient medically & hemodynamically stable?: Yes Patient assessed for mobility or mobilized this visit?: Yes 06/16/17 09:50 Consult to Oil Field Operator [CONS] Routine Reason for SW Consult: Patient wants to go to rehab at [place]; PT/OT to see today; Patient has standard [facility] A&B - Constitutional Vitals: Temp Pulse Resp BP Pulse Ox 98.1 F 89 14 134/88 98 06/17/17 10:54 06/17/17 11:40 06/17/17 11:40 06/17/17 11:40 06/17/17 11:40 - Attending Attestation Discharged on 06/17/17 Hyponatremia likely secondary to poor oral intake and dehydration Continue mild hydration with normal saline, salt tablets Non-STEMI, severe CAD, patient decided to continue medical management only and no CABG, risks explained Plavix added time spent : 40 min stable to be discharged I examined this patient and my medical decision-making was reviewed with the Resident Physician. I agree with the documented findings, disposition and treatment plan as described except to the extent set forth below.
[2017-06-16] MEDS: Furosemide 20 MG TABLET PO SCH (11:43)
--- NOTE | 2017-06-16 11:59 | Physician Discharge Referral ---
ExtendedCare Referral Info Provider in Charge after Transfer: PCP Institutional Level of Care: Skilled - Diagnosis (1) Hyponatremia Priority: Primary Status: Acute (2) Acute on chronic systolic HF (heart failure) Priority: Primary Status: Acute (3) NSTEMI (non-ST elevated myocardial infarction) Priority: Primary Status: Acute (4) CKD (chronic kidney disease) Priority: Primary Status: Chronic (5) DVT prophylaxis Priority: Primary Status: Acute - Transfer Medications Prescriptions: Nitroglycerin 0.3 mg SL Q5MIN PRN #14 tab.subl PRN Reason: Chest Pain Aspirin 81 mg PO DAILY #30 tab.chew Atorvastatin [Lipitor] 40 mg PO HS #30 tablet Clopidogrel [Plavix] 75 mg PO DAILY #30 tablet Furosemide [Lasix] 20 mg PO DAILY #14 tablet Isosorbide MONOnitrate (24 HR) [Imdur] 30 mg PO DAILY #30 tab.er.24h Omeprazole [PriLOSEC] 40 mg PO DAILY #30 capsule.dr Sodium Chloride 1 gm PO BID 7 Days #14 tablet Home Medications: Ergocalciferol (VITAMIN D2) [Vitamin D2] 50,000 unit PO VALENZUELA 05/12/15 [History] Lisinopril [Zestril] 20 mg PO DAILY 05/12/15 [History] cloNIDine HCl [CloNIDine HCl] 0.3 mg PO BID 05/12/15 [History] metFORMIN [Glucophage] 500 mg PO BIDWM 05/12/15 [History] Potassium Chloride [Klor-Con 10] 10 meq PO BID 06/11/17 [History] Atenolol [Tenormin] 50 mg PO BID 06/12/17 [History] Aspirin 81 mg PO DAILY #30 tab.chew 06/16/17 [Rx] Atorvastatin [Lipitor] 40 mg PO HS #30 tablet 06/16/17 [Rx] Clopidogrel [Plavix] 75 mg PO DAILY #30 tablet 06/16/17 [Rx] Furosemide [Lasix] 20 mg PO DAILY #14 tablet 06/16/17 [Rx] Isosorbide MONOnitrate (24 HR) [Imdur] 30 mg PO DAILY #30 tab.er.24h 06/16/17 [ Rx] Nitroglycerin 0.3 mg SL Q5MIN PRN #14 tab.subl 06/16/17 [Rx] Omeprazole [PriLOSEC] 40 mg PO DAILY #30 capsule. 06/16/17 [Rx] Sodium Chloride 1 gm PO BID 7 Days #14 tablet 06/16/17 [Rx] Allergies/Adverse Reactions: 3 Allergy/AdvReac Type Severity Reaction Status Date / Time No Known Allergies Allergy Verified 05/12/15 13:48 - Respiratory Orders Oxygen / L per min (2 L) Smoking Cessation: Smoking cessation has been advised. For more information, call the [place] Tobacco Quit Line at 0-996-TDGS-NOW. - Ancillary Orders May use pressure relief devices daily prn, May go on LIZ w/family/respon democrat w /meds at nurse discretion PRN, May consult with Dentist, Baker Bread, Rn Integrated PRN - Rehabiliation Orders Rehab Potential: Fair - Treatments Skin tear care topically daily PRN per policy, May check for fecal impaction rectally daily PRN, Fleet enema rectally every other day PRN cleansing purposes - Diet Orders Regular CERTIFICATION: I certify that the transfer of the above named patient to an Extended Care Facility is necessary for the continuing treatment of the diagnosis listed. The above information is true and accurate reflection of patient's current condition. Confidential - Redisclosure prohibited without a patient's written consent.
[2017-06-16] MEDS ORDERED: Lactulose Oral Soln 20 GM/30 ML UDC PO ONE (13:41)
--- NOTE | 2017-06-16 16:34 | Nephrology Progress Note ---
Date of Encounter: 06/16/17 Time of Encounter: 16:32 - Assessment and Plan (1) Hyponatremia Current Visit: Yes Status: Acute Sodium level improving with current management. Continue free water restriction. Patient was given furosemide to assist with increasing serum sodium level. (2) Acute kidney injury Current Visit: Yes Status: Acute Improved. She may have a mild creatinine increase secondary to her cardiac cath. (3) HTN (hypertension) Current Visit: Yes Status: Acute Titrate antihypertensive medications as needed. Blood pressure uncontrolled. Titrate beta lai. Titrate ANNELISE-I if renal function remains stable by tomorrow. Restart clonidine as she may be having withdrawal from clonidine. Consider weaning clonidine as she has beta-lai on board. Qualifiers: Hypertension type: essential hypertension Qualified Code(s): I10 - Essential (primary) hypertension (4) NSTEMI (non-ST elevated myocardial infarction) Current Visit: Yes Status: Acute Cardiac cath by cardiology. Medical management of her CAD. Subjective Principal diagnosis: chf exacerbation Interval history: Patient seen. No new complaint. She is asleep, easily awakened, but goes back to sleep quickly. Objective - Vital Signs Vital signs: Vital Signs Temp Pulse Resp BP Pulse Ox 06/16/17 15:44 98.3 F 93 15 181/88 98 06/16/17 12:17 98.1 F 88 15 149/96 99 06/16/17 09:07 98 06/16/17 08:13 98.1 F 95 15 176/98 98 06/16/17 03:30 96.4 F L 87 20 162/95 100 06/15/17 23:44 97 06/15/17 20:01 97.7 F 76 18 129/60 98 06/15/17 17:15 129/60 06/15/17 16:45 18 152/103 99 Intake and Output 06/16/17 06/16/17 06/16/17 07:59 15:59 23:59 Intake Total 134 / 134 552 / 552 Output Total 700 / 700 300 / 300 Balance -566 / -566 252 / 252 Intake: IV Fluids 134 / 134 72 / 72 Heparin 25,000 UNIT/500 ML D5W 134 / 134 72 / 72 25,000 unit In 500 ml @ 12 UNIT /KG/HR 16.056 mls/hr IVC .Q24H EMILY Rx#:[id number] Oral 0 / 0 480 / 480 Output: Urine 700 / 700 300 / 300 Catheter 0 / 0 Other: Meal Lunch Percent of Meal Consumed 45% Weight 72 kg Blood Glucose* 217 Patient Weight 06/16/17 23:59 Weight 72 kg - General Appearance General appearance: Present: well-developed, well-nourished EENT: Present: ATNC Cardiology: Present: regular rate - Lab 06/16/17 06:04 06/16/17 10:55 Most recent lab results ABG pH 7.46 pH Units (7.32-7.45) H 06/14/17 16:51 ABG pCO2 43 mmHg (35-45) 06/14/17 16:51 ABG pO2 121 mmHg (85-104) H 06/14/17 16:51 ABG HCO3 30 mEq/L (21-27) H 06/14/17 16:51 ABG O2 Saturation 99 % (95-98) H 06/14/17 16:51 Calcium 8.9 mg/dL (8.6-10.3) 06/16/17 06:04 Magnesium 2.2 mg/dL (1.6-2.6) 06/11/17 02:40 Urine Sodium 16.6 mEq/L 06/14/17 10:45 - VTE Documentation of Mechanical Device: Intermittent pneumatic compression device Consult Discharge Plan - Plan Instructions: Furosemide (By mouth), Aspirin (By mouth), Omeprazole (By mouth) , Nitroglycerin, Rapid Release (By mouth), Isosorbide Mononitrate (By mouth), Atorvastatin (By mouth), Clopidogrel (By mouth), Sodium Chloride (By mouth), Myocardial Infarction (DC), Heart Failure (DC), Left Heart Catheterization (DC) , Right Heart Catheterization (DC), Chronic Hypertension (DC) Additional Instructions: RISK FACTORS: STOP SMOKING: If you smoke, STOP. Smoking or tobacco use significantly increases your risk of heart disease because nicotine causes the arteries to narrow or constrict. It also causes fats to stick to the artery. Your chances of having a heart attack are greatly increased if you continue to smoke. For more information, call the education line for smoking cessation 6-290-GEJZNBM EAT A LOW FAT/CHOLESTEROL/SODIUM DIET: This diet may help reduce your chances of having a heart attack. LIFTING: Avoid lifting anything more than 10 pounds for 5-7 days Prior to straining, laughing, sneezing and/or coughing, apply manual pressure directly over insertion site. ACTIVITY: You may walk or climb stairs as tolerated You can resume sexual activity as tolerated In general, you are encouraged to engage in a minimum of 30 minutes or more of moderate intensity physical activity, such as brisk walking, daily or at least 3 -4 times weekly BATHING Do not submerge the site into water (bath tub, hot tub, swimming pool) for 1 week. This can be a source for infection into the blood stream. You may shower after 24 hours SITE CARE: After 24 hours, you may remove the dressing and leave the site open to air. Keep the site clean and dry. Clean gently and pat dry. You can expect bruising and tenderness that gradually resolve within a week or two. Return to work as instructed per your physician Resume driving as instructed per physician Keep all scheduled follow up appointments Resume medications as instructed IMPORTANT: If prescribed a Platelet Aggregation Inhibitor such as, Plavix, Brilinta or Effient: Duration of therapy is minimum one year These medications are often used in combination with Aspirin in prevention of future heart attacks Never discontinue unless consult with your Director Teen [employer] STROKE (CVA) Risk factors for a stroke are: Age, cigarette smoking, diabetes, excessive alcohol consumption, family history, high blood pressure, overweight, physical inactivity, prior stroke, heart attack, diagnosis of carotid artery stenosis or other artery disease. Warning signs: Sudden numbness or weakness of the face, arm or leg; especially on one side of the body, sudden confusion, trouble speaking or understanding, sudden trouble seeing in one or both eyes, sudden trouble walking, dizziness, loss of balance or coordination, sudden severe headache with no cause. Call 911 or go to the Emergency Room. CONGESTIVE HEART FAILURE: If you have been diagnosed with Congestive Heart Failure (CHF) and your symptoms return, make an appointment with your physician Weigh yourself daily. Notify your physician if you have a weight gain of two or more pounds in one day or five or more pounds in one week. If you experience any difficulty breathing, please call 911 BLEEDING: Although the risk of bleeding is minimal, it can happen. If you have any bleeding from the site, apply firm pressure above the puncture site for 10-15 minutes. If the bleeding does not stop, continue manual pressure and call 911 Contact your physician if: You develop a fever greater than 101 degrees Fahrenheit Your site becomes reddened or has any drainage You have an increase in pain or burning at the site or if a large knot forms at the site. If you experience chest pain, shortness of breath, dizziness, or extreme tiredness, stop the activity and rest. Please notify your physicians office if you experience any of these symptoms and they are not relieved by rest please call 911! Referrals: Mj Bernabe MD [Primary Care Provider] - Prescriptions: Nitroglycerin 0.3 mg SL Q5MIN PRN #14 tab.subl PRN Reason: Chest Pain Aspirin 81 mg PO DAILY #30 tab.chew Atorvastatin [Lipitor] 40 mg PO HS #30 tablet Clopidogrel [Plavix] 75 mg PO DAILY #30 tablet Furosemide [Lasix] 20 mg PO DAILY #14 tablet Isosorbide MONOnitrate (24 HR) [Imdur] 30 mg PO DAILY #30 tab.er.24h Omeprazole [PriLOSEC] 40 mg PO DAILY #30 capsule. Sodium Chloride 1 gm PO BID 7 Days #14 tablet
[2017-06-16] MEDS: cloNIDine HCl 0.1 MG TABLET PO SCH ×2 (17:37→22:09)
[2017-06-16] MEDS: *HR* Heparin 5,000 UNIT/ML VIAL SQ SCH (17:38)
[2017-06-17] MEDS: *HR* Heparin 5,000 UNIT/ML VIAL SQ SCH (06:16)
[2017-06-17 07:49] LABS: Calcium 9.1 mg/dL (8.6-10.3)
--- NOTE | 2017-06-17 08:52 | Internal Med Progress Note ---
<Luiz Mirza - Last Filed: 06/17/17 08:49> Date of Encounter: 06/17/17 Time of Encounter: 08:40 - Assessment and plan (1) Hyponatremia Status: Acute Assessment and plan: - Na as low as 118 on 06/14/17. - Urine osm 514 & urine sodium 16.6 - Likely hypovolemic hyponatremia in the setting of poor salt intake in the setting of diuresis for her CHF. - Nephrology on board. Currently not on IVF today. - Improves as Na 132 today (130 yesterday). - Continue to hold diuretics. - Continue salt tablet. - Continue to monitor serum Na closely. (2) Acute on chronic systolic HF (heart failure) Status: Acute Assessment and plan: - Chest x-ray on admission showed pulmonary vascular congestion with BNP of 2291. - Last Echo 06/02/2017: LVEF 35% with mild diastolic dysfunction. - Net -566 ml output last 24 hours. Weight increased from 70.4 kg to 73 kg. - -1278 ml output since admission. - Continue to hold diuretics at this time given patient's hypovolemic hyponatremia. - Fluid restriction, strict I/O and daily weight. (3) NSTEMI (non-ST elevated myocardial infarction) Status: Acute Assessment and plan: - Troponin 2.82, 3.05, 2.56. - EKG showed sinus rhythm with frequent PVC. - Patient denies chest pain or shortness of breath at this time. - Currently on heparin drip, aspirin, Lipitor, Coreg, Imdur. - Cath report revealed ejection fraction of 30-35%. She had heavily calcified coronary arteries. Her right coronary artery was 100%, but did fill by collaterals. However, this does not look like a graftable vessel. She had a 95 % LAD lesion and a 95% circumflex lesion. Patient seems to be a prohibitive risk with an ejection fraction of 30% and age of 86. She was dyspneic at rest and walks with a walker only. The patient and her family are against open heart surgery and preferred to try medical therapy. - patient currently denies any chest pain. Admits to SOB when trying to get out of bed, but subsides with rest. (4) CKD (chronic kidney disease) Status: Chronic Assessment and plan: - Renal function stable compared to yesterday. Creatinine currently today at 1.05. - Nephrology on board. - Currently off of IVF. - Avoid nephrotoxin. - Continue to monitor renal function and electrolytes. Qualifiers: Chronic kidney disease stage: unspecified stage Qualified Code(s): N18.9 - Chronic kidney disease, unspecified (5) DVT prophylaxis Status: Acute Assessment and plan: Currently on heparin drip. - Subjective Interval history: When seen today patient denies any chest pain, fever, cough, headaches, abdominal pain, nausea, or vomiting. Patient says that she has been able to eat. Patient is A and O 3. She admits to some minor SOB when trying to get out of bed, but says it subsides when she rests for a bit. - Constitutional Vitals: Temp Pulse Resp BP Pulse Ox 98.4 F 75 15 128/98 94 06/17/17 07:36 06/17/17 07:36 06/17/17 07:36 06/17/17 07:36 06/17/17 07:36 General appearance: Present: cooperative, A&O X 3, answers questions appropriately - Respiratory Respiratory exam: Present: CTAB. Absent: accessory muscle use, rales, rhonchi, wheezes - Cardiovascular Cardiovascular exam: Present: RRR, +S1, +S2. Absent: diastolic murmur, gallop, rubs, systolic murmur - GI/Abdominal GI/Abdominal exam: Present: normal bowel sounds, soft, no peritoneal signs. Absent: distended, tenderness - Extremities Exam Extremities exam: Present: full ROM, normal capillary refill, pedal edema (+1 B/ L pitting edema), warm, radial pulses palpable and symmetrical. Absent: calf tenderness, cyanotic, tenderness Internal Medicine: Result - Labs CBC & Chem 7: 06/16/17 06:04 06/17/17 05:13 Labs: BMP 06/16/17 06/17/17 10:55 05:13 Sodium 130 L 132 L Potassium 4.0 Chloride 98 Carbon Dioxide 27 BUN 26 H Creatinine 1.05 Glucose 121 H Calcium 9.1 - ABG Interpretation ABG results: ABG ABG pH 7.46 pH Units (7.32-7.45) H 06/14/17 16:51 ABG pCO2 43 mmHg (35-45) 06/14/17 16:51 ABG pO2 121 mmHg (85-104) H 06/14/17 16:51 ABG O2 Saturation 99 % (95-98) H 06/14/17 16:51 - VTE Documentation of Mechanical Device: Graduated compression elastic hosiery Consult Discharge Plan - Plan Instructions: Furosemide (By mouth), Aspirin (By mouth), Omeprazole (By mouth) , Nitroglycerin, Rapid Release (By mouth), Isosorbide Mononitrate (By mouth), Atorvastatin (By mouth), Clopidogrel (By mouth), Sodium Chloride (By mouth), Myocardial Infarction (DC), Heart Failure (DC), Left Heart Catheterization (DC) , Right Heart Catheterization (DC), Chronic Hypertension (DC) Additional Instructions: RISK FACTORS: STOP SMOKING: If you smoke, STOP. Smoking or tobacco use significantly increases your risk of heart disease because nicotine causes the arteries to narrow or constrict. It also causes fats to stick to the artery. Your chances of having a heart attack are greatly increased if you continue to smoke. For more information, call the education line for smoking cessation 1-610-RXIDAPM EAT A LOW FAT/CHOLESTEROL/SODIUM DIET: This diet may help reduce your chances of having a heart attack. LIFTING: Avoid lifting anything more than 10 pounds for 5-7 days Prior to straining, laughing, sneezing and/or coughing, apply manual pressure directly over insertion site. ACTIVITY: You may walk or climb stairs as tolerated You can resume sexual activity as tolerated In general, you are encouraged to engage in a minimum of 30 minutes or more of moderate intensity physical activity, such as brisk walking, daily or at least 3 -4 times weekly BATHING Do not submerge the site into water (bath tub, hot tub, swimming pool) for 1 week. This can be a source for infection into the blood stream. You may shower after 24 hours SITE CARE: After 24 hours, you may remove the dressing and leave the site open to air. Keep the site clean and dry. Clean gently and pat dry. You can expect bruising and tenderness that gradually resolve within a week or two. 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 Warning signs: Sudden numbness or weakness of the face, arm or leg; especially on one side of the body, sudden confusion, trouble speaking or understanding, sudden trouble seeing in one or both eyes, sudden trouble walking, dizziness, loss of balance or coordination, sudden severe headache with no cause. Call 911 or go to the Emergency Room. CONGESTIVE HEART FAILURE: If you have been diagnosed with Congestive Heart Failure (CHF) and your symptoms return, make an appointment with your physician Weigh yourself daily. Notify your physician if you have a weight gain of two or more pounds in one day or five or more pounds in one week. If you experience any difficulty breathing, please call 911 BLEEDING: Although the risk of bleeding is minimal, it can happen. If you have any bleeding from the site, apply firm pressure above the puncture site for 10-15 minutes. If the bleeding does not stop, continue manual pressure and call 911 Contact your physician if: You develop a fever greater than 101 degrees Fahrenheit Your site becomes reddened or has any drainage You have an increase in pain or burning at the site or if a large knot forms at the site. If you experience chest pain, shortness of breath, dizziness, or extreme tiredness, stop the activity and rest. Please notify your physicians office if you experience any of these symptoms and they are not relieved by rest please call 911! Referrals: Mj Bernabe MD [Primary Care Provider] - Prescriptions: Nitroglycerin 0.3 mg SL Q5MIN PRN #14 tab.subl PRN Reason: Chest Pain Aspirin 81 mg PO DAILY #30 tab.chew Atorvastatin [Lipitor] 40 mg PO HS #30 tablet Clopidogrel [Plavix] 75 mg PO DAILY #30 tablet Furosemide [Lasix] 20 mg PO DAILY #14 tablet Isosorbide MONOnitrate (24 HR) [Imdur] 30 mg PO DAILY #30 tab.er.24h Omeprazole [PriLOSEC] 40 mg PO DAILY #30 capsule.dr Sodium Chloride 1 gm PO BID 7 Days #14 tablet <Michael Lin H - Last Filed: 06/17/17 15:39> Date of Encounter: 06/17/17 - Constitutional Vitals: Temp Pulse Resp BP Pulse Ox 98.1 F 89 14 134/88 98 06/17/17 10:54 06/17/17 11:40 06/17/17 11:40 06/17/17 11:40 06/17/17 11:40 Internal Medicine: Result - Labs CBC & Chem 7: 06/16/17 06:04 06/17/17 05:13 Labs: BMP 06/17/17 05:13 Sodium 132 L Potassium 4.0 Chloride 98 Carbon Dioxide 27 BUN 26 H Creatinine 1.05 Glucose 121 H Calcium 9.1 - ABG Interpretation ABG results: ABG ABG pH 7.46 pH Units (7.32-7.45) H 06/14/17 16:51 ABG pCO2 43 mmHg (35-45) 06/14/17 16:51 ABG pO2 121 mmHg (85-104) H 06/14/17 16:51 ABG O2 Saturation 99 % (95-98) H 06/14/17 16:51 - Attending Attestation Hyponatremia likely secondary to poor oral intake and dehydration Continue mild hydration with normal saline, salt tablets Non-STEMI, severe CAD, patient decided to continue medical management only and no CABG, risks explained Plavix added time spent : 40 min stable to be discharged I examined this patient and my medical decision-making was reviewed with the Resident Physician. I agree with the documented findings, disposition and treatment plan as described except to the extent set forth below.
[2017-06-17] MEDS: Insulin LISPRO 300 UNITS/3 ML VIAL SQ SCH ×2 (10:01→11:35)
[2017-06-17] MEDS: Aspirin 81 MG TAB.CHEW PO SCH (10:12)
[2017-06-17] MEDS: Furosemide 20 MG TABLET PO SCH (10:13)
[2017-06-17] MEDS: cloNIDine HCl 0.1 MG TABLET PO SCH (10:13)
[2017-06-17] MEDS: Isosorbide MONOnitrate (24 HR) 30 MG TAB.ER.24H PO SCH (10:13)
[2017-06-17] MEDS: Sennosides/Docusate Sodium TABLET PO SCH (10:13)
[2017-06-17 11:40] VITALS: BP 134/88
== END 2017-06-17 15:16 | DRG 280 ==
LOC: 2NENU 17:47
PROVIDERS: ADMIT Internal Medicine; ATTEND Internal Medicine